=== PATIENT | female | born 1970 | race Asian ===

== ENCOUNTER 2017-08-28 21:16 | Inpatient (IN) | payer MEDICAID, OTHER ==
[~2017-08-28] VITALS: Ht 157.5 cm; Wt 50.0 kg
[~2017-08-28 21:16] MED LIST: MECL-111 PO
[2017-08-28] MEDS ORDERED: spironolactone 25 MG tablet PO ONE (21:50)
[2017-08-28] MEDS ORDERED: furosemide 40mg/4ml inj IV ONE (21:50)
[2017-08-28 21:59] LABS: HEMATOCRIT 22.2 % (35.0-45.0); HEMOGLOBIN 7.1 g/dl (12.0-16.0); MEAN CORPUSCULAR HEMOGLOBIN 23.3 PG (27.0-31.0); MEAN CORPUSCULAR HGB CONC 32.1 % (33.0-36.5); MEAN CORPUSCULAR VOLUME 72.6 FL (78-98); MEAN PLATELET VOLUME 9.2 FL (7.4-10.4); PLATELET COUNT 80 X10'3 (140-440); RED CELL DISTRIBUTION WIDTH 23.2 % (11.5-14.5); WHITE BLOOD COUNT 1.7 X10'3 (4.5-11.0)
[2017-08-28 22:23] LABS: PARTIAL THROMBOPLASTIN TIME 29 SECONDS (22-32); PROTHROMBIN TIME 10.3 SECONDS (9.0-12.0)
[2017-08-28 22:29] LABS: RED BLOOD COUNT 3.06 X10'6 (4.20-5.60)
[2017-08-28 22:33] LABS: ALANINE AMINOTRANSFERASE 32 U/L (12-78); ALBUMIN 2.2 G/DL (3.4-5.0); ALBUMIN/GLOBULIN RATIO 0.5 (1.1-1.5); ALKALINE PHOSPHATASE 102 IU/L (46-116); ANION GAP 8 (8-16); ASPARTATE AMINO TRANSFERASE 42 U/L (10-37); BILIRUBIN,TOTAL 0.2 MG/DL (0.1-1.0); BLOOD UREA NITROGEN 23 MG/DL (7-18); BUN/CREATININE RATIO 19.2 (6.6-38.0); CALCIUM 7.4 MG/DL (8.5-10.1); CHLORIDE 112 MMOL/L (99-107); POTASSIUM 3.7 MMOL/L (3.5-5.1); SODIUM 143 MMOL/L (135-145); eGFR 49 ML/MIN
[2017-08-28 22:35] LABS: GLUCOSE 99 MG/DL (70-104)
[2017-08-28 22:40] LABS: TOTAL CELLS COUNTED 100
[2017-08-28 22:41] LABS: ANISOCYTOSIS 3+; PLATELET ESTIMATE DECREASED
[2017-08-28 22:43] LABS: HYPOCHROMASIA 1+; MICROCYTOSIS 1+
[2017-08-28 22:44] LABS: LARGE PLATELETS FEW; TARGET CELLS FEW
[2017-08-28 22:45] LABS: ELLIPTOCYTES FEW; TEAR DROP CELLS FEW
[2017-08-28 23:10] LABS: ETHANOL < 0.010 GM/DL (0.0-0.010)
[2017-08-28] MEDS ORDERED: bisacodyl 10mg suppository rectal RC PRN (23:45)
[2017-08-28] MEDS ORDERED: HYDROmorphone inj. 0.5 MG/0.5 ML DISP.SYRIN IV PRN (23:45)
[2017-08-28] MEDS ORDERED: acetaminophen 650mg rectal suppository RC PRN (23:45)
[2017-08-28] MEDS ORDERED: magnesium hydroxide 30ml (MOM) UD suspension PO PRN (23:45)
[2017-08-28] MEDS ORDERED: HYDROcodone/acetaminophen 5mg/325mg tablet PO PRN (23:45)
[2017-08-28] MEDS ORDERED: mag hydrox/Alum hydrox/simeth 30ml oral suspension PO PRN (23:45)
[2017-08-28] MEDS ORDERED: acetaminophen 325mg tablet PO PRN ×2 (23:45)
[2017-08-28] MEDS ORDERED: diphenhydrAMINE 25mg capsule PO PRN (23:45)
[2017-08-28] MEDS ORDERED: metoclopramide 5 mg/ml inj IV PRN (23:45)
[2017-08-28] MEDS ORDERED: meclizine 12.5mg tablet PO PRN (23:45)
[2017-08-28] MEDS ORDERED: diphenhydrAMINE 50 mg/ml inj IV PRN (23:45)
[2017-08-28 23:47] LABS: CLARITY,URINE CLEAR (Clear); COLOR,URINE STRAW (Yellow); GLUCOSE, URINE NEGATIVE (Neg); KETONES,URINE NEGATIVE (Neg); LEUKOCYTE ESTERASE ,URINE NEGATIVE (Neg); NITRITES, URINE NEGATIVE (Neg); OCCULT BLOOD,URINE TRACE-INTACT (Neg); PROTEIN,URINE NEGATIVE (Neg); UROBILINOGEN,URINE 0.2 E.U/dL (0.2-1.0)
[2017-08-28 23:51] LABS: UA COLLECTION TYPE FOLEY CATH
[2017-08-28 23:54] LABS: BACTERIA,URINE NONE SEEN /HPF (Neg); SQUAMOUS EPITHELIAL CELL,UR FEW /LPF (FEW); WBC,URINE NONE SEEN /HPF (0-4)
[2017-08-28 23:57] LABS: URINE AMPHETAMINE SCREEN NEGATIVE (Neg); URINE BARBITUATE SCREEN NEGATIVE (Neg); URINE BENZODIAZEPINES SCREEN NEGATIVE (Neg); URINE CANNABINOID SCREEN NEGATIVE (Neg); URINE COCAINE SCREEN POSITIVE (Neg); URINE METHADONE SCREEN NEGATIVE (Neg); URINE OPIATE SCREEN NEGATIVE (Neg); URINE PHENCYCLIDINE SCREEN NEGATIVE (Neg)
[2017-08-29] VITALS (7 sets, daily range): BP systolic 161–186; BP diastolic 83–115
[2017-08-29 00:05] LABS: LIPASE 226 U/L (73-393)
[2017-08-29 00:16] LABS: HEMOGLOBIN A1C 5.3 % (4.5-6.2)
[2017-08-29 00:26] LABS: D-DIMER 6.77 MG/L FEU (0-0.50)
[2017-08-29] MEDS: HYDROcodone/acetaminophen 10/325mg tab PO PRN (00:27)
[2017-08-29 00:31] LABS: URINE HCG NEGATIVE (NEG)
[2017-08-29] MEDS: ondansetron/PF 4mg/2ml inj IV PRN ×2 (01:26→10:01)
[2017-08-29] MEDS: morphine 4 MG/ML inj SYRINge IV PRN ×3 (01:26→19:53)
[2017-08-29 01:34] LABS: MAGNESIUM 1.7 MG/DL (1.5-2.4); PHOSPHORUS 3.1 MG/DL (2.3-4.5)
[2017-08-29] MEDS: HYDROmorphone inj. 0.5 MG/0.5 ML DISP.SYRIN IV PRN ×2 (02:13→08:23)
[2017-08-29 04:04] LABS: ALANINE AMINOTRANSFERASE 30 U/L (12-78); ALBUMIN 2.2 G/DL (3.4-5.0); ALBUMIN/GLOBULIN RATIO 0.5 (1.1-1.5); ALKALINE PHOSPHATASE 95 IU/L (46-116); ANION GAP 9 (8-16); ASPARTATE AMINO TRANSFERASE 34 U/L (10-37); BILIRUBIN,TOTAL 0.2 MG/DL (0.1-1.0); BLOOD UREA NITROGEN 25 MG/DL (7-18); BUN/CREATININE RATIO 21.2 (6.6-38.0); CALCIUM 7.4 MG/DL (8.5-10.1); CHLORIDE 111 MMOL/L (99-107); CHOLESTEROL 145 MG/DL (0-200); CREATININE 1.18 MG/DL (0.40-0.90); GLUCOSE 101 MG/DL (70-104); HDL CHOLESTEROL 36 MG/DL (35-60); LDL CHOLESTEROL 87 MG/DL (50-100); POTASSIUM 3.6 MMOL/L (3.5-5.1); SODIUM 143 MMOL/L (135-145); TOTAL PROTEIN 6.9 G/DL (6.4-8.2); TRIGLYCERIDES 93 MG/DL (20-135); eGFR 50 ML/MIN
[2017-08-29 04:25] LABS: MEAN CORPUSCULAR HEMOGLOBIN 23.3 PG (27.0-31.0); MEAN CORPUSCULAR HGB CONC 32.4 % (33.0-36.5); MEAN CORPUSCULAR VOLUME 71.9 FL (78-98); MEAN PLATELET VOLUME 12.1 FL (7.4-10.4); PLATELET COUNT 93 X10'3 (140-440); RED BLOOD COUNT 2.93 X10'6 (4.20-5.60); RED CELL DISTRIBUTION WIDTH 23.7 % (11.5-14.5); WHITE BLOOD COUNT 1.8 X10'3 (4.5-11.0)
[2017-08-29 04:29] LABS: HEMOGLOBIN 6.8 g/dl (12.0-16.0)
[2017-08-29 05:37] LABS: NUCLEATED RED BLOOD CELLS 2 /100WBC (0-0); PLATELET ESTIMATE DECREASED; TOTAL CELLS COUNTED 100
[2017-08-29 05:38] LABS: ANISOCYTOSIS 3+; HYPOCHROMASIA 1+; MICROCYTOSIS 1+
[2017-08-29 05:39] LABS: ELLIPTOCYTES FEW; LARGE PLATELETS FEW; SMUDGE CELLS FEW; TARGET CELLS FEW; TEAR DROP CELLS FEW
[2017-08-29] MEDS: docusate sod 100mg capsule PO SCH ×2 (08:13→19:52)
[2017-08-29] MEDS: furosemide 10 MG/1 ML 10ml inj IV SCH ×2 (08:14→17:40)
[2017-08-29 10:11] LABS: C-REACTIVE PROTEIN 0.15 MG/DL (0.0-0.5)
[2017-08-29 10:36] LABS: % IRON SATURATION 7 % (11-46); IRON 26 UG/DL (49-151); TOTAL IRON BINDING CAPACITY 355 UG/DL (259-388)
[2017-08-29] MEDS: pantoprazole 40 MG vial IV SCH (13:48)
[2017-08-29] MEDS: methylPREDNISolone sod succ 125mg/2ml vial IV SCH ×3 (13:48→19:52)
[2017-08-29] MEDS ORDERED: furosemide 20 MG/2 ML vial IV ONE (15:55)
[2017-08-29] MEDS: potassium Cl 20 mEq SR tablet PO SCH (17:40)
[2017-08-30] VITALS (8 sets, daily range): BP systolic 127–155; BP diastolic 70–89
[2017-08-30] MEDS: morphine 4 MG/ML inj SYRINge IV PRN ×3 (00:01→18:01)
[2017-08-30] MEDS: furosemide 10 MG/1 ML 10ml inj IV SCH ×3 (00:05→15:41)
[2017-08-30] MEDS: temazepam 15mg capsule PO PRN (00:58)
[2017-08-30] MEDS: methylPREDNISolone sod succ 125mg/2ml vial IV SCH ×4 (02:00→15:41)
[2017-08-30 06:20] LABS: HEMATOCRIT 25.2 % (35.0-45.0); HEMOGLOBIN 8.3 g/dl (12.0-16.0); MEAN CORPUSCULAR HEMOGLOBIN 24.3 PG (27.0-31.0); MEAN CORPUSCULAR HGB CONC 32.9 % (33.0-36.5); MEAN PLATELET VOLUME 9.2 FL (7.4-10.4); PLATELET COUNT 71 X10'3 (140-440); RED BLOOD COUNT 3.41 X10'6 (4.20-5.60); WHITE BLOOD COUNT 1.7 X10'3 (4.5-11.0)
[2017-08-30 06:44] LABS: ALANINE AMINOTRANSFERASE 25 U/L (12-78); ALBUMIN 2.2 G/DL (3.4-5.0); ALBUMIN/GLOBULIN RATIO 0.4 (1.1-1.5); ALKALINE PHOSPHATASE 82 IU/L (46-116); ANION GAP 7 (8-16); ASPARTATE AMINO TRANSFERASE 27 U/L (10-37); BILIRUBIN,TOTAL 0.3 MG/DL (0.1-1.0); BLOOD UREA NITROGEN 24 MG/DL (7-18); BUN/CREATININE RATIO 17.5 (6.6-38.0); CALCIUM 7.5 MG/DL (8.5-10.1); CHLORIDE 107 MMOL/L (99-107); CREATININE 1.37 MG/DL (0.40-0.90); GLUCOSE 124 MG/DL (70-104); POTASSIUM 3.9 MMOL/L (3.5-5.1); SODIUM 141 MMOL/L (135-145); TOTAL CARBON DIOXIDE 26.9 MMOL/L (24-32); TOTAL PROTEIN 7.1 G/DL (6.4-8.2); eGFR 42 ML/MIN
[2017-08-30 07:19] LABS: TOTAL CELLS COUNTED 100
[2017-08-30 07:20] LABS: ANISOCYTOSIS 3+; PLATELET ESTIMATE DECREASED
[2017-08-30 07:21] LABS: MICROCYTOSIS 1+; POLYCHROMASIA 1+; SCHISTOCYTES FEW; TEAR DROP CELLS 1+
[2017-08-30 07:22] LABS: SMUDGE CELLS 1+
[2017-08-30 07:23] LABS: ELLIPTOCYTES FEW; HYPOCHROMASIA 2+; LARGE PLATELETS FEW; TARGET CELLS 1+
[2017-08-30] MEDS: docusate sod 100mg capsule PO SCH ×2 (08:20→19:58)
[2017-08-30] MEDS: pantoprazole 40 MG vial IV SCH (08:20)
[2017-08-30] MEDS: lisinopril 2.5mg tablet PO SCH (08:20)
[2017-08-30] MEDS: potassium Cl 20 mEq SR tablet PO SCH ×2 (08:20→18:00)
[2017-08-30] MEDS ORDERED: aminophylline 250mg/10ml inj. IV PRN (13:00)
[2017-08-30] MEDS ORDERED: metoprolol tartrate 1mg/ml inj IV PRN (13:00)
[2017-08-30] MEDS ORDERED: nitroGLYCERIN 0.4mg SUBLingual tab SL PRN (13:00)
[2017-08-30] MEDS ORDERED: regadenoson 0.4mg/5ml syringe IV ONE (13:00)
[2017-08-30] MEDS: aspirin 81mg tablet.DR PO SCH (15:42)
[2017-08-31] VITALS (12 sets, daily range): BP systolic 92–146; BP diastolic 62–81
[2017-08-31] MEDS: methylPREDNISolone sod succ 125mg/2ml vial IV SCH ×3 (00:06→19:39)
[2017-08-31] MEDS: furosemide 10 MG/1 ML 10ml inj IV SCH ×3 (00:06→19:38)
[2017-08-31] MEDS: temazepam 15mg capsule PO PRN (00:13)
[2017-08-31] MEDS: morphine 4 MG/ML inj SYRINge IV PRN ×3 (00:13→21:06)
[2017-08-31 05:24] LABS: HEMOGLOBIN 8.7 g/dl (12.0-16.0); MEAN CORPUSCULAR HEMOGLOBIN 24.6 PG (27.0-31.0); MEAN CORPUSCULAR HGB CONC 32.2 % (33.0-36.5); MEAN CORPUSCULAR VOLUME 76.1 FL (78-98); MEAN PLATELET VOLUME 10.6 FL (7.4-10.4); PLATELET COUNT 88 X10'3 (140-440); RED BLOOD COUNT 3.54 X10'6 (4.20-5.60); RED CELL DISTRIBUTION WIDTH 22.8 % (11.5-14.5); WHITE BLOOD COUNT 5.2 X10'3 (4.5-11.0)
[2017-08-31 05:35] LABS: ALANINE AMINOTRANSFERASE 24 U/L (12-78); ALBUMIN 2.3 G/DL (3.4-5.0); ALBUMIN/GLOBULIN RATIO 0.5 (1.1-1.5); ALKALINE PHOSPHATASE 81 IU/L (46-116); ANION GAP 8 (8-16); ASPARTATE AMINO TRANSFERASE 22 U/L (10-37); BILIRUBIN,TOTAL 0.2 MG/DL (0.1-1.0); BLOOD UREA NITROGEN 33 MG/DL (7-18); BUN/CREATININE RATIO 23.1 (6.6-38.0); CALCIUM 7.8 MG/DL (8.5-10.1); CHLORIDE 102 MMOL/L (99-107); CREATININE 1.43 MG/DL (0.40-0.90); GLUCOSE 158 MG/DL (70-104); POTASSIUM 4.2 MMOL/L (3.5-5.1); SODIUM 137 MMOL/L (135-145); TOTAL CARBON DIOXIDE 27.1 MMOL/L (24-32); TOTAL PROTEIN 7.2 G/DL (6.4-8.2); eGFR 40 ML/MIN
[2017-08-31 07:09] LABS: TOTAL CELLS COUNTED 100
[2017-08-31 07:12] LABS: ANISOCYTOSIS 3+; ELLIPTOCYTES 1+; HYPOCHROMASIA 2+; MICROCYTOSIS 1+; PLATELET ESTIMATE DECREASED; TARGET CELLS 1+
[2017-08-31 07:13] LABS: POLYCHROMASIA FEW
[2017-08-31 07:14] LABS: SCHISTOCYTES FEW
[2017-08-31 07:15] LABS: LARGE PLATELETS FEW; POIKILOCYTOSIS 1+
[2017-08-31 07:16] LABS: SPHEROCYTES FEW
[2017-08-31] MEDS ORDERED: regadenoson 0.4mg/5ml syringe IV ONE (08:09)
[2017-08-31] MEDS ORDERED: aminophylline inj. 0 ML IV ONE (08:09)
[2017-08-31] MEDS: pantoprazole 40mg Tablet.DR PO SCH (09:42)
[2017-08-31] MEDS: docusate sod 100mg capsule PO SCH ×2 (09:42→19:39)
[2017-08-31] MEDS: aspirin 81mg tablet.DR PO SCH (09:42)
[2017-08-31] MEDS: carVEDilol 3.125mg tablet PO SCH ×2 (09:42→19:39)
[2017-08-31] MEDS: lisinopril 2.5mg tablet PO SCH (09:42)
[2017-08-31] MEDS: potassium Cl 20 mEq SR tablet PO SCH ×2 (09:42→17:56)
[2017-09-01] MEDS: morphine 4 MG/ML inj SYRINge IV PRN (02:20)
[2017-09-01 03:00] VITALS: BP 125/69
[2017-09-01 05:14] LABS: HEMATOCRIT 25.5 % (35.0-45.0); HEMOGLOBIN 8.6 g/dl (12.0-16.0); MEAN CORPUSCULAR HEMOGLOBIN 25.6 PG (27.0-31.0); MEAN CORPUSCULAR HGB CONC 33.6 % (33.0-36.5); MEAN CORPUSCULAR VOLUME 76.1 FL (78-98); MEAN PLATELET VOLUME 10.4 FL (7.4-10.4); PLATELET COUNT 89 X10'3 (140-440); RED BLOOD COUNT 3.35 X10'6 (4.20-5.60); RED CELL DISTRIBUTION WIDTH 22.3 % (11.5-14.5); WHITE BLOOD COUNT 7.2 X10'3 (4.5-11.0)
[2017-09-01 05:31] LABS: ALANINE AMINOTRANSFERASE 55 U/L (12-78); ALBUMIN 2.1 G/DL (3.4-5.0); ALBUMIN/GLOBULIN RATIO 0.4 (1.1-1.5); ALKALINE PHOSPHATASE 90 IU/L (46-116); ANION GAP 5 (8-16); ASPARTATE AMINO TRANSFERASE 74 U/L (10-37); BILIRUBIN,TOTAL 0.2 MG/DL (0.1-1.0); BLOOD UREA NITROGEN 38 MG/DL (7-18); BUN/CREATININE RATIO 25.9 (6.6-38.0); CALCIUM 7.9 MG/DL (8.5-10.1); CHLORIDE 104 MMOL/L (99-107); CREATININE 1.47 MG/DL (0.40-0.90); GLUCOSE 174 MG/DL (70-104); POTASSIUM 4.4 MMOL/L (3.5-5.1); SODIUM 138 MMOL/L (135-145); TOTAL CARBON DIOXIDE 28.6 MMOL/L (24-32); TOTAL PROTEIN 6.8 G/DL (6.4-8.2); eGFR 38 ML/MIN
[2017-09-01 05:50] LABS: LYMPHOCYTES % (MANUAL) 3 % (21-51); MONOCYTES % (MANUAL) 11 % (2-12); NEUTROPHILS % (MANUAL) 86 % (42-75); TOTAL CELLS COUNTED 100
[2017-09-01 05:51] LABS: ANISOCYTOSIS 3+; HYPOCHROMASIA 1+; PLATELET ESTIMATE DECREASED; TARGET CELLS 1+
[2017-09-01 05:52] LABS: SCHISTOCYTES FEW
[2017-09-01 06:00] VITALS: BP 122/70
[2017-09-01] MEDS: aspirin 81mg tablet.DR PO SCH (07:40)
[2017-09-01] MEDS: carVEDilol 3.125mg tablet PO SCH (07:40)
[2017-09-01] MEDS: lisinopril 2.5mg tablet PO SCH (07:40)
[2017-09-01] MEDS: pantoprazole 40mg Tablet.DR PO SCH (07:40)
[2017-09-01] MEDS: docusate sod 100mg capsule PO SCH (07:40)
[2017-09-01] MEDS: furosemide 10 MG/1 ML 10ml inj IV SCH (07:41)
[2017-09-01] MEDS: methylPREDNISolone sod succ 125mg/2ml vial IV SCH (07:41)
[2017-09-01] MEDS: potassium Cl 20 mEq SR tablet PO SCH (07:41)
[2017-09-01] MEDS: HYDROcodone/acetaminophen 10/325mg tab PO PRN ×2 (07:43→12:34)
[2017-09-01 11:00] VITALS: BP 115/60
[2017-09-01] MEDS ORDERED: FURO-150 PO (11:30)
[2017-09-01] MEDS ORDERED: PRED10TA23 PO (11:30)
[2017-09-01] MEDS ORDERED: POTA20TA10 PO (11:30)
[2017-09-01] MEDS ORDERED: LISI2.5T2 PO (11:30)
[2017-09-01] MEDS ORDERED: PANT40TA4 PO (11:30)
[2017-09-01] MEDS ORDERED: COR3.125T PO (11:30)
== END 2017-09-01 13:30 | disposition home or self-care (01) | DRG 194 ==
LOC: ER 21:17 → ED HOLD 23:45 → PCU 3S 08-29 15:20
PROVIDERS: ADMIT Family Medicine; ATTEND Internal Medicine
PROC: 30233N1 Transfusion of Nonautologous Red Blood Cells into Peripheral Vein, Percutaneous Approach (ICD-10-PCS; principal; 2017-08-29)
PROC: 0W9G3ZZ Drainage of Peritoneal Cavity, Percutaneous Approach (ICD-10-PCS; 2017-08-30)
DX: I11.0 Hypertensive heart disease with heart failure (principal); D61.818 Other pancytopenia; N17.9 Acute kidney failure, unspecified; I31.3 Pericardial effusion (noninflammatory); D69.6 Thrombocytopenia, unspecified; R18.8 Other ascites; I27.20 Pulmonary hypertension, unspecified; M32.9 Systemic lupus erythematosus, unspecified; I50.23 Acute on chronic systolic (congestive) heart failure; M19.90 Unspecified osteoarthritis, unspecified site; G89.29 Other chronic pain; D63.8 Anemia in other chronic diseases classified elsewhere; F14.10 Cocaine abuse, uncomplicated; F17.210 Nicotine dependence, cigarettes, uncomplicated; Z91.14 Patient's other noncompliance with medication regimen; Z71.51 Drug abuse counseling and surveillance of drug abuser; Z56.0 Unemployment, unspecified; Z82.3 Family history of stroke
CPT/HCPCS: 36415; 49083; 71045; 71250; 74176; 78452; 80053; 80061; 80305; 80320; 81001; 81025; 82248; 83036; 83540; 83550; 83690; 83735; 83880; 84100; 84443; 84484; 85025; 85379; 85610; 85651; 85730; 86140; 86885; 86900; 86901; 86920; 86945; 87070; 93005; 93017; 93306; 93970; 96374; 99285; A4315; A9500; A9539; A9540; C9113; J0280; J1170; J1940; J2270; J2405; J2930; J7030; P9016; Q0163

== ENCOUNTER 2019-07-08 21:53 | Inpatient (IN) | payer MEDICAID, OTHER ==
[~2019-07-08] VITALS: Ht 157.5 cm; Wt 50.9 kg
[~2019-07-08 21:53] MED LIST changes: +COR3.125T PO; +LISI2.5T2 PO; -MECL-111 PO; +PANT40TA4 PO; +POTA20TA10 PO
--- NOTE | 2019-07-08 21:57 | NUR ---
Daughter's phone number (POA): [phone]
[2019-07-08 22:34] LABS: BASOPHILS % (AUTO) 0.7 % (0-1); EOSINOPHILS % (AUTO) 1.1 % (0-6); LYMPHOCYTES # (AUTO) 0.3 X10'3 (1.1-4.8); LYMPHOCYTES % (AUTO) 14.4 % (21-51); MEAN CORPUSCULAR HEMOGLOBIN 27.1 PG (27.0-31.0); MEAN CORPUSCULAR HGB CONC 33.4 g/dL (33.0-36.5); MEAN CORPUSCULAR VOLUME 81.1 FL (78-98); MEAN PLATELET VOLUME 8.5 FL (7.4-10.4); MONOCYTES # (AUTO) 0.2 X10'3 (0-0.9); MONOCYTES % (AUTO) 7.8 % (2-12); NEUTROPHILS # (AUTO) 1.5 X10'3 (1.8-7.7); PLATELET COUNT 101 X10'3 (140-440); RED BLOOD COUNT 2.27 X10'6 (4.20-5.60); WHITE BLOOD COUNT 1.9 X10'3 (4.5-11.0)
[2019-07-08 22:41] LABS: CLARITY,URINE CLEAR (Clear); COLOR,URINE YELLOW (Yellow); GLUCOSE, URINE NEGATIVE (Neg); KETONES,URINE NEGATIVE (Neg); LEUKOCYTE ESTERASE ,URINE NEGATIVE (Neg); NITRITES, URINE NEGATIVE (Neg); OCCULT BLOOD,URINE TRACE-INTACT (Neg); PH,URINE 6.5 (4.8-8.0); PROTEIN,URINE 100 mg/dl (Neg); URINE HCG NEGATIVE (NEG); UROBILINOGEN,URINE 0.2 E.U/dL (0.2-1.0)
[2019-07-08 22:41] LABS: PARTIAL THROMBOPLASTIN TIME 37 SECONDS (22-32)
[2019-07-08 22:45] LABS: ALANINE AMINOTRANSFERASE 29 U/L (12-78); ALBUMIN 1.5 G/DL (3.4-5.0); ALBUMIN/GLOBULIN RATIO 0.2 (1.1-1.5); ALKALINE PHOSPHATASE 25 IU/L (46-116); AMYLASE 100 U/L (25-115); ANION GAP 11 (8-16); ASPARTATE AMINO TRANSFERASE 34 U/L (10-37); BILIRUBIN,TOTAL 0.2 MG/DL (0.1-1.0); BLOOD UREA NITROGEN 25 MG/DL (7-18); CALCIUM 7.8 MG/DL (8.5-10.1); CHLORIDE 106 MMOL/L (99-107); CREATININE 1.47 MG/DL (0.40-0.90); HEMATOCRIT 18.4 % (35.0-45.0); HEMOGLOBIN 6.2 g/dl (12.0-16.0); LIPASE 280 U/L (73-393); POTASSIUM 4.7 MMOL/L (3.5-5.1); SODIUM 134 MMOL/L (135-145); TOTAL CARBON DIOXIDE 17.3 MMOL/L (24-32); TOTAL PROTEIN 8.2 G/DL (6.4-8.2); eGFR 38 ML/MIN
[2019-07-08 22:46] LABS: GLUCOSE 98 MG/DL (70-104)
[2019-07-08 22:47] LABS: UA COLLECTION TYPE NON-SPECIFIED
[2019-07-08 22:48] LABS: BACTERIA,URINE FEW /HPF (Neg); RBC,URINE 0-2 /HPF (0-2); SQUAMOUS EPITHELIAL CELL,UR FEW /LPF (FEW); WBC,URINE NONE SEEN /HPF (0-4)
[2019-07-08 22:51] LABS: URINE AMPHETAMINE SCREEN NEGATIVE (Neg); URINE BARBITUATE SCREEN NEGATIVE (Neg); URINE BENZODIAZEPINES SCREEN NEGATIVE (Neg); URINE CANNABINOID SCREEN NEGATIVE (Neg); URINE COCAINE SCREEN NEGATIVE (Neg); URINE METHADONE SCREEN NEGATIVE (Neg); URINE OPIATE SCREEN POSITIVE (Neg); URINE PHENCYCLIDINE SCREEN NEGATIVE (Neg)
[2019-07-08] MEDS ORDERED: morphine 2 MG/ML inj. syringe IV ONE (22:55)
[2019-07-08 23:13] LABS: ANISOCYTOSIS 3+; ELLIPTOCYTES FEW; HYPOCHROMASIA 1+; PLATELET ESTIMATE DECREASED; TOTAL CELLS COUNTED 100
[2019-07-08] MEDS ORDERED: FURO-149 PO (23:26)
[2019-07-08] MEDS ORDERED: SPIR50TA5 PO (23:26)
[2019-07-08] MEDS ORDERED: HYDR-3972 PO (23:26)
[2019-07-08 23:27] LABS: MAGNESIUM 1.8 MG/DL (1.5-2.4)
[2019-07-09] VITALS (8 sets, daily range): BP systolic 101–117; BP diastolic 57–78
--- NOTE | 2019-07-09 00:17 | NUR ---
Called blood bank re blood product for pt. Per lab personnel, pt. needs irradiated product. Order to [facility] has been placed and process takes about 1hour. Lab personnel to update nursing staff when product is ready.
[2019-07-09] MEDS ORDERED: normal saline 1000ml 1,000 ML IV SCH (01:43)
[2019-07-09] MEDS ORDERED: magnesium hydroxide 30ml (MOM) UD suspension PO PRN (01:45)
[2019-07-09] MEDS ORDERED: mag hydrox/Alum hydrox/simeth 30ml oral suspension PO PRN (01:45)
[2019-07-09] MEDS ORDERED: acetaminophen 325mg tablet PO PRN (01:45)
[2019-07-09] MEDS ORDERED: ondansetron/PF 4mg/2ml inj IV PRN (01:45)
--- NOTE | 2019-07-09 01:48 | NUR ---
PT PLACED ON HOSPITAL BED FOR COMFORT
[2019-07-09] MEDS ORDERED: vancomycin/NS 1 GM ADD-VANTAGE 250 ML IV SCH (02:00)
[2019-07-09] MEDS: HYDROcodone/acetaminophen 10/325mg tab PO PRN ×2 (02:47→12:04)
--- NOTE | 2019-07-09 06:50 | NUR ---
pt sleeping quietly at this time.
[2019-07-09] MEDS: CefTRIAXone/D5W-Rocephin 1gm 50 ML IV SCH (08:38)
--- NOTE | 2019-07-09 08:41 | NUR ---
PT C/O SUPRAPUBIC PAIN, A BURNING PAIN ON A SCALE OF 10/10
[2019-07-09] MEDS: normal saline 1000ml 1,000 ML IV SCH (11:19)
[2019-07-09 13:38] LABS: HEMATOCRIT 24.4 % (35.0-45.0); HEMOGLOBIN 8.1 g/dl (12.0-16.0); MEAN CORPUSCULAR HEMOGLOBIN 27.8 PG (27.0-31.0); MEAN CORPUSCULAR VOLUME 84.3 FL (78-98); MEAN PLATELET VOLUME 8.4 FL (7.4-10.4); PLATELET COUNT 88 X10'3 (140-440); RED CELL DISTRIBUTION WIDTH 18.6 % (11.5-14.5); WHITE BLOOD COUNT 1.7 X10'3 (4.5-11.0)
[2019-07-09 15:37] LABS: ALBUMIN 1.4 G/DL (3.4-5.0); ANION GAP 8 (8-16); BLOOD UREA NITROGEN 24 MG/DL (7-18); BUN/CREATININE RATIO 17.6 (6.6-38.0); CALCIUM 7.1 MG/DL (8.5-10.1); CHLORIDE 109 MMOL/L (99-107); CREATININE 1.36 MG/DL (0.40-0.90); GLUCOSE 97 MG/DL (70-104); POTASSIUM 4.4 MMOL/L (3.5-5.1); SODIUM 134 MMOL/L (135-145); TOTAL CARBON DIOXIDE 16.9 MMOL/L (24-32); eGFR 42 ML/MIN
--- NOTE | 2019-07-09 18:58 | NUR ---
Gave report to Terrance Wiley.
[2019-07-09] MEDS: pantoprazole 40 MG vial IV SCH (21:34)
[2019-07-09] MEDS: methylPREDNISolone sod succ/PF 40mg inj. IV SCH (21:34)
[2019-07-10] VITALS: BP 108/60
[2019-07-10] MEDS: normal saline 1000ml 1,000 ML IV SCH (05:05)
[2019-07-10 06:03] LABS: BASOPHILS % (AUTO) 0.3 % (0-1); EOSINOPHILS % (AUTO) 0.1 % (0-6); HEMATOCRIT 25.1 % (35.0-45.0); HEMOGLOBIN 8.4 g/dl (12.0-16.0); LYMPHOCYTES # (AUTO) 0.4 X10'3 (1.1-4.8); LYMPHOCYTES % (AUTO) 22.2 % (21-51); MEAN CORPUSCULAR HEMOGLOBIN 27.7 PG (27.0-31.0); MEAN CORPUSCULAR HGB CONC 33.3 g/dL (33.0-36.5); MEAN CORPUSCULAR VOLUME 83.1 FL (78-98); MEAN PLATELET VOLUME 9.2 FL (7.4-10.4); MONOCYTES # (AUTO) 0.1 X10'3 (0-0.9); MONOCYTES % (AUTO) 5.8 % (2-12); NEUTROPHILS # (AUTO) 1.2 X10'3 (1.8-7.7); NEUTROPHILS % (AUTO) 71.6 % (42-75); PLATELET COUNT 86 X10'3 (140-440); RED BLOOD COUNT 3.02 X10'6 (4.20-5.60); RED CELL DISTRIBUTION WIDTH 18.5 % (11.5-14.5); WHITE BLOOD COUNT 1.6 X10'3 (4.5-11.0)
[2019-07-10 06:39] LABS: ALANINE AMINOTRANSFERASE 18 U/L (12-78); ALBUMIN 1.3 G/DL (3.4-5.0); ALBUMIN/GLOBULIN RATIO 0.2 (1.1-1.5); ALKALINE PHOSPHATASE 22 IU/L (46-116); ANION GAP 10 (8-16); ASPARTATE AMINO TRANSFERASE 23 U/L (10-37); BILIRUBIN,TOTAL 0.1 MG/DL (0.1-1.0); BLOOD UREA NITROGEN 24 MG/DL (7-18); BUN/CREATININE RATIO 18.6 (6.6-38.0); CALCIUM 6.9 MG/DL (8.5-10.1); CHLORIDE 110 MMOL/L (99-107); CREATININE 1.29 MG/DL (0.40-0.90); POTASSIUM 4.8 MMOL/L (3.5-5.1); SODIUM 136 MMOL/L (135-145); TOTAL CARBON DIOXIDE 16.2 MMOL/L (24-32); TOTAL PROTEIN 7.8 G/DL (6.4-8.2); eGFR 44 ML/MIN
[2019-07-10 06:40] LABS: GLUCOSE 117 MG/DL (70-104)
[2019-07-10 07:00] VITALS: BP 110/63
[2019-07-10 07:15] LABS: ANISOCYTOSIS 2+; MICROCYTOSIS 1+; PLATELET ESTIMATE DECREASED; TOTAL CELLS COUNTED 100
[2019-07-10 07:16] LABS: POLYCHROMASIA FEW
[2019-07-10] MEDS: CefTRIAXone/D5W-Rocephin 1gm 50 ML IV SCH (08:25)
[2019-07-10] MEDS: methylPREDNISolone sod succ/PF 40mg inj. IV SCH ×2 (08:25→20:05)
[2019-07-10] MEDS: pantoprazole 40 MG vial IV SCH ×2 (08:25→20:05)
[2019-07-10] MEDS: HYDROcodone/acetaminophen 10/325mg tab PO PRN (08:26)
--- NOTE | 2019-07-10 09:17 | NUR ---
PAGER ID: [phone] MESSAGE: Good morning. Venus Elam in [address] order requiring your immediate attention please. GFR 42. Thank you! Radha [id number]
--- NOTE | 2019-07-10 10:31 | NUR ---
Called MD Katz cell phone and spoke to MD. Clarified CT order. MD stated he want IV contrast before because he wanted more detail of fluid in abdomen. Stated he thought it was just anasarca. He is aware of pt's kidney function however and feels the risks outweigh the benefits in this circumstance. MD Katz confirmed cancelation of CT of abd and pelvis with IV contrast.
[2019-07-10 12:37] VITALS: BP 111/63
[2019-07-10 16:55] VITALS: BP 184/104
[2019-07-10 16:55] LABS: ALANINE AMINOTRANSFERASE 20 U/L (12-78); ALBUMIN 1.2 G/DL (3.4-5.0); ALBUMIN/GLOBULIN RATIO 0.2 (1.1-1.5); ALKALINE PHOSPHATASE 23 IU/L (46-116); ANION GAP 7 (8-16); ASPARTATE AMINO TRANSFERASE 28 U/L (10-37); BILIRUBIN,TOTAL 0.1 MG/DL (0.1-1.0); BLOOD UREA NITROGEN 27 MG/DL (7-18); BUN/CREATININE RATIO 18.8 (6.6-38.0); CALCIUM 6.5 MG/DL (8.5-10.1); CHLORIDE 108 MMOL/L (99-107); CREATININE 1.44 MG/DL (0.40-0.90); POTASSIUM 4.6 MMOL/L (3.5-5.1); SODIUM 133 MMOL/L (135-145); TOTAL PROTEIN 7.5 G/DL (6.4-8.2); eGFR 39 ML/MIN
[2019-07-10 16:58] LABS: GLUCOSE 145 MG/DL (70-104)
[2019-07-10 20:00] VITALS: BP 142/75
[2019-07-11] VITALS: BP 116/71
[2019-07-11] MEDS: normal saline 1000ml 1,000 ML IV SCH (01:39)
[2019-07-11 05:10] LABS: BASOPHILS % (AUTO) 0.5 % (0-1); EOSINOPHILS % (AUTO) 0 % (0-6); HEMATOCRIT 26.1 % (35.0-45.0); HEMOGLOBIN 8.7 g/dl (12.0-16.0); LYMPHOCYTES # (AUTO) 0.5 X10'3 (1.1-4.8); LYMPHOCYTES % (AUTO) 15.4 % (21-51); MEAN CORPUSCULAR HGB CONC 33.2 g/dL (33.0-36.5); MEAN CORPUSCULAR VOLUME 84.3 FL (78-98); MEAN PLATELET VOLUME 8.7 FL (7.4-10.4); MONOCYTES # (AUTO) 0.3 X10'3 (0-0.9); MONOCYTES % (AUTO) 9.4 % (2-12); NEUTROPHILS # (AUTO) 2.6 X10'3 (1.8-7.7); NEUTROPHILS % (AUTO) 74.7 % (42-75); PLATELET COUNT 102 X10'3 (140-440); RED BLOOD COUNT 3.09 X10'6 (4.20-5.60); WHITE BLOOD COUNT 3.4 X10'3 (4.5-11.0)
[2019-07-11 05:23] LABS: ALANINE AMINOTRANSFERASE 27 U/L (12-78); ALBUMIN 1.3 G/DL (3.4-5.0); ALBUMIN/GLOBULIN RATIO 0.2 (1.1-1.5); ALKALINE PHOSPHATASE 22 IU/L (46-116); ANION GAP 8 (8-16); ASPARTATE AMINO TRANSFERASE 37 U/L (10-37); BILIRUBIN,TOTAL 0.1 MG/DL (0.1-1.0); BLOOD UREA NITROGEN 28 MG/DL (7-18); BUN/CREATININE RATIO 20.9 (6.6-38.0); CALCIUM 6.8 MG/DL (8.5-10.1); CHLORIDE 111 MMOL/L (99-107); CREATININE 1.34 MG/DL (0.40-0.90); POTASSIUM 4.8 MMOL/L (3.5-5.1); SODIUM 136 MMOL/L (135-145); TOTAL CARBON DIOXIDE 16.6 MMOL/L (24-32); eGFR 42 ML/MIN
[2019-07-11 05:25] LABS: GLUCOSE 132 MG/DL (70-104)
--- NOTE | 2019-07-11 06:00 | NUR ---
Patient in room [facility] 352. I have received report from REBECCA Saucedo and had the opportunity to ask questions and assume patient care.
[2019-07-11 06:18] LABS: ANISOCYTOSIS 2+; PLATELET ESTIMATE DECREASED; TOTAL CELLS COUNTED 100
[2019-07-11 06:19] LABS: ELLIPTOCYTES FEW
--- NOTE | 2019-07-11 06:34 | NUR ---
Problems reprioritized. Patient report given, questions answered & plan of care reviewed with Carlo FERNANDEZ.
[2019-07-11] MEDS: methylPREDNISolone sod succ/PF 40mg inj. IV SCH (07:49)
[2019-07-11] MEDS: pantoprazole 40 MG vial IV SCH (07:52)
[2019-07-11 08:00] VITALS: BP 126/79
[2019-07-11] MEDS ORDERED: pneumococcal 23-VAL P-sac vacc 25 mcg/0.5ml vial IMVAC ONE (10:00)
--- NOTE | 2019-07-11 10:42 | NUR ---
IR team to patient bedside scanned ABD with ultrasound and determined that there was not enough fluid to drain by Stanislaw FALOLN. Nursing Staff informed
[2019-07-11] MEDS: HYDROcodone/acetaminophen 10/325mg tab PO PRN (10:45)
--- NOTE | 2019-07-11 11:33 | NUR ---
REBECCA TC: Pt family requesting neutropenic diet guidelines for once d/c since to maintain neutropenic precautions. RD provided written neutropenic and general food safety diet eds w/ RD contact information placed in patient chart to be included in d/c packet. RN notified since family requested but had just left prior to RD visit. Addendum: 07/11/19 at [address] Amended: Links added.
[2019-07-11] MEDS ORDERED: PANT-47 PO (11:53)
[2019-07-11] MEDS ORDERED: PRED20TA PO ×2 (11:56→11:58)
--- NOTE | 2019-07-11 13:30 | NUR ---
Patient discharged home into the care of family. Patient verbalized understanding of instructions. Patient will follow neutropenic dietary guidelines as provided. Patient will follow up with primary care provider. Patient IV's removed, no tele. Patient alert, oriented and appropriate for discharge. Patient left with all belongings. Patient escorted down by member of the staff.
[2019-07-12] MEDS ORDERED: VANCOMYCIN LEVEL IV ONE (01:30)
== END 2019-07-11 14:00 | disposition home or self-care (01) | DRG 194 ==
LOC: ER 21:54 → ED HOLD 07-09 01:43 → SUR 3N 07-09 12:41
PROVIDERS: ADMIT Internal Medicine; ATTEND Internal Medicine
PROC: 30233N1 Transfusion of Nonautologous Red Blood Cells into Peripheral Vein, Percutaneous Approach (ICD-10-PCS; principal; 2019-07-09)
DX: I50.23 Acute on chronic systolic (congestive) heart failure (principal); D61.818 Other pancytopenia; E86.0 Dehydration; M32.9 Systemic lupus erythematosus, unspecified; K72.90 Hepatic failure, unspecified without coma; D64.9 Anemia, unspecified; F19.10 Other psychoactive substance abuse, uncomplicated; Z86.73 Personal history of transient ischemic attack (TIA), and cerebral infarction without residual deficits; Z87.891 Personal history of nicotine dependence; G89.29 Other chronic pain; M19.90 Unspecified osteoarthritis, unspecified site
CPT/HCPCS: 36415; 36430; 71045; 74176; 76705; 80048; 80053; 80305; 81001; 81025; 82150; 83605; 83690; 83735; 83880; 84145; 84484; 85025; 85027; 85610; 85730; 86885; 86900; 86901; 86920; 86945; 87040; 93005; 93306; C9113; G0378; J0696; J2270; J2405; J2920; J3370; J7030; P9016

== ENCOUNTER 2019-10-01 23:09 | Inpatient (IN) | payer MEDICAID ==
[~2019-10-01] VITALS: Ht 157.5 cm; Wt 49.9 kg
[~2019-10-01 23:09] MED LIST changes: -COR3.125T PO; +FURO-149 PO; +HYDR-3972 PO; -LISI2.5T2 PO; +PANT-47 PO; -PANT40TA4 PO; -POTA20TA10 PO; +PRED20TA PO; +SPIR50TA5 PO
[2019-10-02] VITALS (7 sets, daily range): BP systolic 92–153; BP diastolic 47–83
[2019-10-02 00:46] LABS: HEMOGLOBIN 8.8 g/dl (12.0-16.0); MEAN CORPUSCULAR HGB CONC 32.8 g/dL (33.0-36.5); MEAN PLATELET VOLUME 9.6 FL (7.4-10.4); MONOCYTES # (AUTO) 0.3 X10'3 (0-0.9); NEUTROPHILS # (AUTO) 0.7 X10'3 (1.8-7.7); PARTIAL THROMBOPLASTIN TIME 33 SECONDS (22-32); WHITE BLOOD COUNT 1.9 X10'3 (4.5-11.0)
[2019-10-02 00:49] LABS: ALANINE AMINOTRANSFERASE 14 U/L (12-78); ALBUMIN 2.6 G/DL (3.4-5.0); ALBUMIN/GLOBULIN RATIO 0.4 (1.1-1.5); ALKALINE PHOSPHATASE 12 IU/L (46-116); ANION GAP 7 (8-16); ASPARTATE AMINO TRANSFERASE 31 U/L (10-37); BILIRUBIN,TOTAL 0.3 MG/DL (0.1-1.0); BLOOD UREA NITROGEN 48 MG/DL (7-18); BUN/CREATININE RATIO 27.7 (6.6-38.0); CALCIUM 8.5 MG/DL (8.5-10.1); CHLORIDE 103 MMOL/L (99-107); CREATINE KINASE 56 U/L (26-192); CREATININE 1.73 MG/DL (0.40-0.90); MAGNESIUM 1.9 MG/DL (1.5-2.4); POTASSIUM 4.3 MMOL/L (3.5-5.1); SODIUM 136 MMOL/L (135-145); TOTAL CARBON DIOXIDE 25.9 MMOL/L (24-32); TOTAL PROTEIN 8.4 G/DL (6.4-8.2); eGFR 32 ML/MIN
[2019-10-02 00:50] LABS: GLUCOSE 106 MG/DL (70-104)
[2019-10-02 00:59] LABS: BASOPHILS % (AUTO) 0.5 % (0-1); EOSINOPHILS % (AUTO) 1.4 % (0-6); LYMPHOCYTES # (AUTO) 0.9 X10'3 (1.1-4.8); MEAN CORPUSCULAR VOLUME 91.5 FL (78-98); MONOCYTES % (AUTO) 15.6 % (2-12); NEUTROPHILS % (AUTO) 36.5 % (42-75); PLATELET COUNT 60 X10'3 (140-440); RED BLOOD COUNT 2.94 X10'6 (4.20-5.60); RED CELL DISTRIBUTION WIDTH 15.2 % (11.5-14.5)
[2019-10-02 01:03] LABS: HCG SERUM QL NEGATIVE
[2019-10-02 01:34] LABS: URINE AMPHETAMINE SCREEN NEGATIVE (Neg); URINE BARBITUATE SCREEN NEGATIVE (Neg); URINE BENZODIAZEPINES SCREEN NEGATIVE (Neg); URINE CANNABINOID SCREEN NEGATIVE (Neg); URINE COCAINE SCREEN NEGATIVE (Neg); URINE METHADONE SCREEN NEGATIVE (Neg); URINE OPIATE SCREEN POSITIVE (Neg); URINE PHENCYCLIDINE SCREEN NEGATIVE (Neg)
[2019-10-02 01:49] LABS: TOTAL CELLS COUNTED 100
[2019-10-02 01:50] LABS: ELLIPTOCYTES 1+; PLATELET ESTIMATE DECREASED
[2019-10-02] MEDS ORDERED: LACT10SO PO (02:35)
[2019-10-02] MEDS ORDERED: ACET325T55 PO (02:38)
[2019-10-02] MEDS ORDERED: PANT-47 PO (02:47)
[2019-10-02] MEDS ORDERED: FERR-106 PO (02:51)
[2019-10-02] MEDS ORDERED: acetaminophen 325mg tablet PO PRN (03:45)
[2019-10-02] MEDS ORDERED: ondansetron/PF 4mg/2ml inj IV PRN (03:45)
[2019-10-02] MEDS ORDERED: mag hydrox/Alum hydrox/simeth 30ml oral suspension PO PRN (03:45)
[2019-10-02] MEDS: calcium acetate 667mg (PhosLO) capsule PO SCH ×4 (04:26→17:56)
[2019-10-02] MEDS: normal saline 1000ml 1,000 ML IV SCH ×3 (04:26→23:43)
--- NOTE | 2019-10-02 04:30 | NUR ---
Patient in room PCU 3022. I have received report from Cap RN and had the opportunity to ask questions and assume patient care.
[2019-10-02 04:33] LABS: COLOR,URINE YELLOW (Yellow); GLUCOSE, URINE NEGATIVE (Neg); KETONES,URINE NEGATIVE (Neg); LEUKOCYTE ESTERASE ,URINE SMALL (Neg); NITRITES, URINE NEGATIVE (Neg); OCCULT BLOOD,URINE TRACE-LYSED (Neg); PROTEIN,URINE 100 mg/dl (Neg); UROBILINOGEN,URINE 0.2 E.U/dL (0.2-1.0)
--- NOTE | 2019-10-02 04:35 | NUR ---
Pt arrived on unit in stable condition.
[2019-10-02 04:36] LABS: CLARITY,URINE SLIGHTLY CLOUDY (Clear); UA COLLECTION TYPE URINAL
[2019-10-02 04:41] LABS: WBC,URINE 0-4 /HPF (0-4)
[2019-10-02 04:42] LABS: BACTERIA,URINE 1+ /HPF (Neg); HYALINE CASTS 0-3 /LPF (NEGATIVE); MUCUS STRANDS MODERATE /LPF (Neg); RBC,URINE 0-2 /HPF (0-2); TRANSITIONAL EPI CELLS,URINE MANY /HPF; WBC CLUMPS,URINE MODERATE /HPF (NEGATIVE)
[2019-10-02 04:43] LABS: SQUAMOUS EPITHELIAL CELL,UR MANY /LPF (FEW)
--- NOTE | 2019-10-02 05:10 | NUR ---
pt complaining of 10 out of 10 chest pain, got STAT ekg, called [facility] for order for nitro and morphine, but no new orders were received. It is thought to not be cardiac related.
[2019-10-02] MEDS: HYDROcodone/acetaminophen 10/325mg tab PO PRN (05:38)
--- NOTE | 2019-10-02 06:29 | NUR ---
Problems reprioritized. Patient report given, questions answered & plan of care reviewed with JAY JAY RN.
--- NOTE | 2019-10-02 06:30 | NUR ---
Patient in room PCU 3022. I have received report from REBECCA GOMEZ and had the opportunity to ask questions and assume patient care.
[2019-10-02] MEDS: spironolactone 50 MG tablet PO SCH (08:00)
[2019-10-02] MEDS: furosemide 40mg tablet PO SCH (08:00)
--- NOTE | 2019-10-02 18:26 | NUR ---
Problems reprioritized. Patient report given, questions answered & plan of care reviewed with REBECCA PADILLA.
--- NOTE | 2019-10-02 18:40 | NUR ---
Patient in room PCU 3022. I have received report from Joe FERNANDEZ and had the opportunity to ask questions and assume patient care.
[2019-10-02] MEDS: heparin, porcine 5000 units/ml vial SQ SCH (19:22)
[2019-10-02] MEDS: lactulose 20gm/30ml cup PO PRN (22:24)
[2019-10-03] MEDS ORDERED: simethicone 80mg chew tab PO ONE (01:10)
[2019-10-03] MEDS: HYDROcodone/acetaminophen 10/325mg tab PO PRN ×2 (01:20→20:13)
[2019-10-03 02:00] VITALS: BP 105/53
[2019-10-03] MEDS: diphenhydrAMINE 25mg capsule PO PRN ×2 (02:09→22:33)
[2019-10-03 06:00] VITALS: BP 99/58
--- NOTE | 2019-10-03 06:15 | NUR ---
Problems reprioritized. Patient report given, questions answered & plan of care reviewed with Joe RN.
--- NOTE | 2019-10-03 06:22 | NUR ---
Patient in room PCU 3022. I have received report from REBECCA PADILLA and had the opportunity to ask questions and assume patient care.
[2019-10-03 06:41] LABS: ALANINE AMINOTRANSFERASE 13 U/L (12-78); ALBUMIN/GLOBULIN RATIO 0.4 (1.1-1.5); ALKALINE PHOSPHATASE 10 IU/L (46-116); ANION GAP 8 (8-16); ASPARTATE AMINO TRANSFERASE 23 U/L (10-37); BILIRUBIN,TOTAL 0.2 MG/DL (0.1-1.0); BLOOD UREA NITROGEN 36 MG/DL (7-18); BUN/CREATININE RATIO 26.1 (6.6-38.0); CALCIUM 8.2 MG/DL (8.5-10.1); CHLORIDE 110 MMOL/L (99-107); CREATININE 1.38 MG/DL (0.40-0.90); POTASSIUM 3.9 MMOL/L (3.5-5.1); SODIUM 139 MMOL/L (135-145); TOTAL CARBON DIOXIDE 21.2 MMOL/L (24-32); TOTAL PROTEIN 6.7 G/DL (6.4-8.2); eGFR 41 ML/MIN
[2019-10-03 06:47] LABS: GLUCOSE 73 MG/DL (70-104)
[2019-10-03 06:55] LABS: BASOPHILS % (AUTO) 0.6 % (0-1); EOSINOPHILS % (AUTO) 1.2 % (0-6); HEMATOCRIT 24.2 % (35.0-45.0); LYMPHOCYTES # (AUTO) 0.7 X10'3 (1.1-4.8); LYMPHOCYTES % (AUTO) 46.6 % (21-51); MEAN CORPUSCULAR HEMOGLOBIN 29.6 PG (27.0-31.0); MEAN CORPUSCULAR HGB CONC 32.8 g/dL (33.0-36.5); MEAN CORPUSCULAR VOLUME 90.3 FL (78-98); MEAN PLATELET VOLUME 9.4 FL (7.4-10.4); MONOCYTES # (AUTO) 0.2 X10'3 (0-0.9); MONOCYTES % (AUTO) 12.5 % (2-12); NEUTROPHILS # (AUTO) 0.6 X10'3 (1.8-7.7); NEUTROPHILS % (AUTO) 39.1 % (42-75); RED BLOOD COUNT 2.69 X10'6 (4.20-5.60); RED CELL DISTRIBUTION WIDTH 14.6 % (11.5-14.5); WHITE BLOOD COUNT 1.4 X10'3 (4.5-11.0)
[2019-10-03 07:26] LABS: PLATELET COUNT 46 X10'3 (140-440)
--- NOTE | 2019-10-03 07:30 | NUR ---
PAGER ID: [phone] MESSAGE: DR. VALDES, [id number]/[id number], CRITICAL LAB:PLT= 46. WAS 60 YESTERDAY. PLAN TO HOLD SUBCUTANEOUS HEPARIN. JAY JAY [id number]. TY
[2019-10-03] MEDS: furosemide 40mg tablet PO SCH ×2 (08:00→09:52)
[2019-10-03] MEDS: spironolactone 50 MG tablet PO SCH ×2 (08:00→09:52)
[2019-10-03] MEDS: calcium acetate 667mg (PhosLO) capsule PO SCH ×3 (08:00→18:00)
[2019-10-03] MEDS: heparin, porcine 5000 units/ml vial SQ SCH ×2 (08:00→19:20)
[2019-10-03 09:33] LABS: ANISOCYTOSIS 1+; PLATELET ESTIMATE DECREASED; TOTAL CELLS COUNTED 100
[2019-10-03 09:34] LABS: ELLIPTOCYTES FEW
[2019-10-03 09:35] LABS: ROULEAUX 1+
[2019-10-03 09:38] LABS: SMUDGE CELLS 2+
[2019-10-03 11:00] VITALS: BP 105/50
[2019-10-03 15:00] VITALS: BP 108/61
--- NOTE | 2019-10-03 16:37 | NUR ---
PAGER ID: [phone] MESSAGE: DR. VALDES, [id number]/YULIYA, [facility] JUST CALLED, THEY SAID TO CALL THEM [facility] IF WE STILL WANT TO TRANSFER PT. JAY JAY VALDERRAMA [id number].
--- NOTE | 2019-10-03 18:36 | NUR ---
Problems reprioritized. Patient report given, questions answered & plan of care reviewed with REBECCA ESCOTO.
[2019-10-03 19:00] VITALS: BP 115/63
--- NOTE | 2019-10-03 19:19 | NUR ---
Patient in room PCU 3022. I have received report from Joe Wiley and had the opportunity to ask questions and assume patient care.
[2019-10-03] MEDS: lactulose 20gm/30ml cup PO PRN (22:26)
[2019-10-03 23:00] VITALS: BP 122/59
[2019-10-04 04:31] VITALS: BP 109/54
[2019-10-04] MEDS: acetaminophen 325mg tablet PO PRN ×2 (04:35→22:58)
[2019-10-04 06:16] LABS: BASOPHILS % (AUTO) 0.6 % (0-1); EOSINOPHILS % (AUTO) 1.8 % (0-6); HEMATOCRIT 25.2 % (35.0-45.0); HEMOGLOBIN 8.4 g/dl (12.0-16.0); LYMPHOCYTES # (AUTO) 0.7 X10'3 (1.1-4.8); LYMPHOCYTES % (AUTO) 52.6 % (21-51); MEAN CORPUSCULAR HEMOGLOBIN 29.9 PG (27.0-31.0); MEAN CORPUSCULAR HGB CONC 33.2 g/dL (33.0-36.5); MEAN CORPUSCULAR VOLUME 90.2 FL (78-98); MEAN PLATELET VOLUME 8.6 FL (7.4-10.4); MONOCYTES # (AUTO) 0.2 X10'3 (0-0.9); MONOCYTES % (AUTO) 16.2 % (2-12); NEUTROPHILS # (AUTO) 0.4 X10'3 (1.8-7.7); NEUTROPHILS % (AUTO) 28.8 % (42-75); RED BLOOD COUNT 2.79 X10'6 (4.20-5.60); RED CELL DISTRIBUTION WIDTH 14.8 % (11.5-14.5); WHITE BLOOD COUNT 1.3 X10'3 (4.5-11.0)
[2019-10-04 06:18] LABS: ALANINE AMINOTRANSFERASE 15 U/L (12-78); ALBUMIN 2.2 G/DL (3.4-5.0); ALBUMIN/GLOBULIN RATIO 0.4 (1.1-1.5); ALKALINE PHOSPHATASE 12 IU/L (46-116); ANION GAP 8 (8-16); ASPARTATE AMINO TRANSFERASE 28 U/L (10-37); BILIRUBIN,TOTAL 0.2 MG/DL (0.1-1.0); BLOOD UREA NITROGEN 39 MG/DL (7-18); CALCIUM 8.9 MG/DL (8.5-10.1); CHLORIDE 107 MMOL/L (99-107); CREATININE 1.56 MG/DL (0.40-0.90); POTASSIUM 3.9 MMOL/L (3.5-5.1); SODIUM 139 MMOL/L (135-145); TOTAL CARBON DIOXIDE 23.9 MMOL/L (24-32); TOTAL PROTEIN 7.3 G/DL (6.4-8.2); eGFR 36 ML/MIN
[2019-10-04 06:20] LABS: GLUCOSE 79 MG/DL (70-104)
[2019-10-04 06:22] LABS: PLATELET COUNT 44 X10'3 (140-440)
--- NOTE | 2019-10-04 06:42 | NUR ---
PAGER ID: [phone] MESSAGE: [id number] Donovan Marialuisa. Platelet count 44 down from 46 yesterday. Patient here for severe weakenss, has pancytopenia currently sees director chemistry outpatient.
--- NOTE | 2019-10-04 06:49 | NUR ---
Patient in room PCU 3022. I have received report from Dontae FERNANDEZ and had the opportunity to ask questions and assume patient care.
[2019-10-04 07:00] VITALS: BP 105/51
[2019-10-04 07:13] LABS: PLATELET ESTIMATE DECREASED; TOTAL CELLS COUNTED 100
[2019-10-04] MEDS: heparin, porcine 5000 units/ml vial SQ SCH ×2 (08:00→18:31)
[2019-10-04] MEDS: spironolactone 50 MG tablet PO SCH (08:58)
[2019-10-04] MEDS: calcium acetate 667mg (PhosLO) capsule PO SCH ×3 (08:59→19:37)
[2019-10-04] MEDS: HYDROcodone/acetaminophen 10/325mg tab PO PRN (08:59)
[2019-10-04] MEDS: furosemide 40mg tablet PO SCH (08:59)
[2019-10-04] MEDS ORDERED: pneumococcal 23-VAL P-sac vacc 25 mcg/0.5ml vial IMVAC ONE (10:00)
[2019-10-04 11:00] VITALS: BP 100/60
[2019-10-04] MEDS: lactulose 20gm/30ml cup PO PRN (12:58)
[2019-10-04 15:00] VITALS: BP 135/81
--- NOTE | 2019-10-04 16:20 | NUR ---
Caryn GRIMALDO PAGER ID: [phone] MESSAGE: Daisy PCU. RE Marialuisa, N 3022. Tested Covid NEGATIVE. Please come sign transfer orders at charge desk. Thank you
[2019-10-04 18:00] VITALS: BP 115/59
--- NOTE | 2019-10-04 18:16 | NUR ---
Problems reprioritized. Patient report given, questions answered & plan of care reviewed with Dontae RN.
--- NOTE | 2019-10-04 18:43 | NUR ---
Patient in room PCU 3022. I have received report from Ion FERNANDEZ and had the opportunity to ask questions and assume patient care.
[2019-10-04 22:00] VITALS: BP 100/69
--- NOTE | 2019-10-04 22:39 | NUR ---
PAGER ID: [phone] MESSAGE: [facility] room 3022. Here for severe weakness, going to be transfered to [facility] within the next few days. Has not had a bowel movement since the . Has been taking lactulose. Pt would like something stronger. EXT 1076
[2019-10-04] MEDS ORDERED: bisacodyl 10mg suppository rectal RC STA (22:46)
[2019-10-04] MEDS ORDERED: magnesium citrate 296ml oral solution PO ONE (22:50)
[2019-10-04] MEDS: diphenhydrAMINE 25mg capsule PO PRN (22:59)
[2019-10-05] MEDS ORDERED: magnesium citrate 296ml oral solution PO PRN (01:40)
[2019-10-05 02:00] VITALS: BP 107/62
[2019-10-05] MEDS: HYDROcodone/acetaminophen 10/325mg tab PO PRN ×2 (04:03→19:55)
[2019-10-05 05:13] LABS: HBSAG SCREEN Negative (Negative); HEPATITIS C ANTIBODY 0.1 s/co ratio (0.0-0.9)
[2019-10-05 05:54] LABS: BASOPHILS % (AUTO) 1.6 % (0-1); EOSINOPHILS % (AUTO) 1.6 % (0-6); HEMATOCRIT 27.6 % (35.0-45.0); HEMOGLOBIN 9.2 g/dl (12.0-16.0); LYMPHOCYTES # (AUTO) 0.7 X10'3 (1.1-4.8); LYMPHOCYTES % (AUTO) 40.6 % (21-51); MEAN CORPUSCULAR HEMOGLOBIN 29.8 PG (27.0-31.0); MEAN CORPUSCULAR HGB CONC 33.2 g/dL (33.0-36.5); MEAN CORPUSCULAR VOLUME 89.9 FL (78-98); MEAN PLATELET VOLUME 9.4 FL (7.4-10.4); MONOCYTES # (AUTO) 0.3 X10'3 (0-0.9); MONOCYTES % (AUTO) 15.4 % (2-12); NEUTROPHILS # (AUTO) 0.7 X10'3 (1.8-7.7); NEUTROPHILS % (AUTO) 40.8 % (42-75); PLATELET COUNT 55 X10'3 (140-440); RED BLOOD COUNT 3.07 X10'6 (4.20-5.60); RED CELL DISTRIBUTION WIDTH 14.8 % (11.5-14.5); WHITE BLOOD COUNT 1.6 X10'3 (4.5-11.0)
[2019-10-05 06:00] VITALS: BP 105/54
[2019-10-05 06:13] LABS: ALANINE AMINOTRANSFERASE 10 U/L (12-78); ALBUMIN 2.2 G/DL (3.4-5.0); ALBUMIN/GLOBULIN RATIO 0.4 (1.1-1.5); ALKALINE PHOSPHATASE 12 IU/L (46-116); ANION GAP 9 (8-16); ASPARTATE AMINO TRANSFERASE 29 U/L (10-37); BILIRUBIN,TOTAL 0.3 MG/DL (0.1-1.0); BLOOD UREA NITROGEN 38 MG/DL (7-18); BUN/CREATININE RATIO 24.4 (6.6-38.0); CALCIUM 9.9 MG/DL (8.5-10.1); CHLORIDE 104 MMOL/L (99-107); CREATININE 1.56 MG/DL (0.40-0.90); GLUCOSE 82 MG/DL (70-104); POTASSIUM 4.1 MMOL/L (3.5-5.1); SODIUM 136 MMOL/L (135-145); TOTAL CARBON DIOXIDE 23.5 MMOL/L (24-32); TOTAL PROTEIN 7.7 G/DL (6.4-8.2); eGFR 36 ML/MIN
--- NOTE | 2019-10-05 06:24 | NUR ---
Problems reprioritized. Patient report given, questions answered & plan of care reviewed with Ion Wiley.
--- NOTE | 2019-10-05 06:33 | NUR ---
Patient in room PCU 3022. I have received report from Dontae FERNANDEZ and had the opportunity to ask questions and assume patient care.
[2019-10-05 06:52] LABS: PLATELET ESTIMATE DECREASED; TOTAL CELLS COUNTED 100
[2019-10-05] MEDS: heparin, porcine 5000 units/ml vial SQ SCH (08:00)
[2019-10-05] MEDS: calcium acetate 667mg (PhosLO) capsule PO SCH ×2 (09:01→13:00)
[2019-10-05] MEDS: furosemide 40mg tablet PO SCH (09:01)
[2019-10-05] MEDS: spironolactone 50 MG tablet PO SCH (09:01)
[2019-10-05] MEDS: acetaminophen 325mg tablet PO PRN (09:02)
[2019-10-05 11:00] VITALS: BP 104/61
[2019-10-05 15:00] VITALS: BP 101/59
--- NOTE | 2019-10-05 18:00 | NUR ---
Patient in room PCU 3022. I have received report from Ion and had the opportunity to ask questions and assume patient care.
--- NOTE | 2019-10-05 18:39 | NUR ---
Problems reprioritized. Patient report given, questions answered & plan of care reviewed with Erlinda FERNANDEZ.
--- NOTE | 2019-10-05 19:57 | NUR ---
Patient being transferred by [facility] ambulance with Debbie Tolentino to [facility]. Patient's belongings including purse and personal medications from the pharmacy went with the patient. Patient left the floor at 1999.
--- NOTE | 2019-10-05 20:09 | NUR ---
Discharged at 1957 from PCU. Patient was taken to [facility] by [facility] using a gurney. Report was called to REBECCA Mcdonald at [facility] at 1935. She was taken off the heart monitoring mobile device. Patient was A&Ox4 and vital signs were: BP: 135/82, HR 79, RR 13, SpO2 95% on room air.
[2019-10-06 11:10] LABS: ATYPICAL PANCA <1:20 titer (Neg:<1:20); CYTOPLASMIC (C-ANCA) <1:20 titer (Neg:<1:20); PERINUCLEAR (P-ANCA) <1:20 titer (Neg:<1:20)
== END 2019-10-05 20:00 | disposition short-term general hospital (02) | DRG 469 ==
LOC: ER 23:09 → ED HOLD 10-02 03:43 → PCU 3S 10-02 04:46
PROVIDERS: ADMIT Internal Medicine; ATTEND Internal Medicine
PROC: 3E0234Z Introduction of Serum, Toxoid and Vaccine into Muscle, Percutaneous Approach (ICD-10-PCS; principal; 2019-10-04)
DX: N17.9 Acute kidney failure, unspecified (principal); G62.9 Polyneuropathy, unspecified; I50.9 Heart failure, unspecified; N18.3 Chronic kidney disease, stage 3 (moderate); Y92.89 Other specified places as the place of occurrence of the external cause; Y99.8 Other external cause status; Y93.E1 Activity, personal bathing and showering; W18.2XXA Fall in (into) shower or empty bathtub, initial encounter; Z82.3 Family history of stroke; Z86.73 Personal history of transient ischemic attack (TIA), and cerebral infarction without residual deficits; Z87.891 Personal history of nicotine dependence; M19.90 Unspecified osteoarthritis, unspecified site; G89.29 Other chronic pain; Z23 Encounter for immunization; Z20.828 Contact with and (suspected) exposure to other viral communicable diseases
CPT/HCPCS: 36415; 70551; 71045; 72141; 80053; 80305; 81001; 82140; 82550; 82595; 82607; 83735; 84100; 84484; 84703; 85025; 85651; 85730; 86256; 86803; 87081; 87340; 87635; 90732; 93005; 97110; 97112; 97161; 97530; 99285; G0378; J2405; J7030; Q0163

== ENCOUNTER 2019-10-19 14:41 | Inpatient (IN) | payer MEDICAID ==
[~2019-10-19] VITALS: Ht 157.5 cm; Wt 49.9 kg
[~2019-10-19 14:41] MED LIST changes: +ACET325T55 PO; +FERR-106 PO; +LACT10SO PO; -PRED20TA PO
--- NOTE | 2019-10-19 18:00 | NUR ---
Problems reprioritized. Patient report given, questions answered & plan of care reviewed with
[2019-10-19 22:00] VITALS: BP 127/64
[2019-10-19] MEDS ORDERED: mag hydrox/Alum hydrox/simeth 30ml oral suspension PO PRN (23:20)
[2019-10-19] MEDS ORDERED: acetaminophen 325mg tablet PO PRN (23:20)
[2019-10-19] MEDS ORDERED: magnesium hydroxide 30ml (MOM) UD suspension PO PRN (23:20)
[2019-10-19] MEDS ORDERED: HYDR200T80 PO (23:45)
[2019-10-19] MEDS ORDERED: THIAMINE MONONITRATE PO (23:45)
[2019-10-19] MEDS ORDERED: GABA300C PO (23:45)
[2019-10-19] MEDS ORDERED: MELA3TAB39 PO (23:45)
[2019-10-19] MEDS ORDERED: VITD400T PO (23:45)
[2019-10-19] MEDS ORDERED: DICLOFENAC 1% TOP (23:45)
[2019-10-19] MEDS ORDERED: DULO30CA52 PO (23:45)
[2019-10-19] MEDS ORDERED: PRED50TA PO (23:45)
[2019-10-19] MEDS ORDERED: SENN-263 PO (23:45)
[2019-10-19] MEDS ORDERED: LACT10SO PO (23:45)
[2019-10-19] MEDS ORDERED: POLY17PO10 PO (23:45)
[2019-10-19] MEDS ORDERED: SULF1TAB49 PO (23:45)
[2019-10-19] MEDS ORDERED: LANS30CA56 PO (23:45)
[2019-10-19] MEDS ORDERED: CLOT15CR10 TOP (23:45)
[2019-10-19] MEDS ORDERED: LIDO700A32 TOP (23:45)
[2019-10-19] MEDS ORDERED: CALC500T11 PO (23:45)
[2019-10-20 06:10] VITALS: BP 125/61
[2019-10-20 06:10] LABS: BASOPHILS % (AUTO) 0.1 % (0-1); EOSINOPHILS % (AUTO) 0.8 % (0-6); HEMATOCRIT 26.4 % (35.0-45.0); HEMOGLOBIN 8.6 g/dl (12.0-16.0); LYMPHOCYTES # (AUTO) 0.6 X10'3 (1.1-4.8); MEAN CORPUSCULAR HEMOGLOBIN 30.3 PG (27.0-31.0); MEAN CORPUSCULAR HGB CONC 32.5 g/dL (33.0-36.5); MEAN CORPUSCULAR VOLUME 93.2 FL (78-98); MEAN PLATELET VOLUME 8.3 FL (7.4-10.4); MONOCYTES # (AUTO) 0.3 X10'3 (0-0.9); NEUTROPHILS # (AUTO) 1.8 X10'3 (1.8-7.7); NEUTROPHILS % (AUTO) 66.1 % (42-75); PLATELET COUNT 84 X10'3 (140-440); RED BLOOD COUNT 2.83 X10'6 (4.20-5.60); RED CELL DISTRIBUTION WIDTH 15.4 % (11.5-14.5); WHITE BLOOD COUNT 2.7 X10'3 (4.5-11.0)
--- NOTE | 2019-10-20 06:23 | NUR ---
Patient in room ORTHO 4017. I have received report from Karen FERNANDEZ and had the opportunity to ask questions and assume patient care.
[2019-10-20 06:49] LABS: ALANINE AMINOTRANSFERASE 33 U/L (12-78); ALBUMIN/GLOBULIN RATIO 0.4 (1.1-1.5); ALKALINE PHOSPHATASE 11 IU/L (46-116); ANION GAP 8 (8-16); ASPARTATE AMINO TRANSFERASE 22 U/L (10-37); BILIRUBIN,TOTAL 0.3 MG/DL (0.1-1.0); BLOOD UREA NITROGEN 33 MG/DL (7-18); BUN/CREATININE RATIO 30.6 (6.6-38.0); CALCIUM 7.4 MG/DL (8.5-10.1); CHLORIDE 109 MMOL/L (99-107); CREATININE 1.08 MG/DL (0.40-0.90); POTASSIUM 5.3 MMOL/L (3.5-5.1); SODIUM 137 MMOL/L (135-145); TOTAL CARBON DIOXIDE 19.6 MMOL/L (24-32); TOTAL PROTEIN 7.3 G/DL (6.4-8.2); eGFR 54 ML/MIN
[2019-10-20 07:05] LABS: GLUCOSE 82 MG/DL (70-104)
--- NOTE | 2019-10-20 08:12 | NUR ---
I paged Dr. Cook about patient K 5.3 and med rec. She is aware.
[2019-10-20 10:00] VITALS: BP 119/67
[2019-10-20 11:11] LABS: NUCLEATED RED BLOOD CELLS 2 /100WBC (0-0); TOTAL CELLS COUNTED 100
[2019-10-20 11:12] LABS: PLATELET ESTIMATE DECREASED
[2019-10-20 11:13] LABS: ANISOCYTOSIS 1+
[2019-10-20] MEDS: morphine 2 MG/ML inj. syringe IV PRN ×2 (17:21→23:57)
[2019-10-20 18:00] VITALS: BP 105/56
--- NOTE | 2019-10-20 18:25 | NUR ---
Patient in room ORTHO 4017. I have received report from Salena FERNANDEZ and had the opportunity to ask questions and assume patient care.
[2019-10-20] MEDS ORDERED: clotrimazole topical cream 15gm tube TP PRN (20:00)
[2019-10-20] MEDS: polyethylene glycol 3350 17gm powd pack PO SCH (20:53)
[2019-10-20] MEDS: gabapentin 300mg capsule PO SCH (20:53)
[2019-10-20] MEDS: Melatonin 3mg tablet PO SCH (20:53)
[2019-10-20] MEDS: HYDROcodone/acetaminophen 10/325mg tab PO PRN (20:54)
[2019-10-20] MEDS: ondansetron/PF 4mg/2ml inj IV PRN (21:46)
[2019-10-20 22:00] VITALS: BP 119/62
[2019-10-21] MEDS: HYDROcodone/acetaminophen 10/325mg tab PO PRN (04:49)
[2019-10-21 06:10] VITALS: BP 111/54
--- NOTE | 2019-10-21 06:23 | NUR ---
Problems reprioritized. Patient report given, questions answered & plan of care reviewed with Salena FERNANDEZ.
--- NOTE | 2019-10-21 06:28 | NUR ---
Patient in room ORTHO 4017. I have received report from Treasure FERNANDEZ and had the opportunity to ask questions and assume patient care.
--- NOTE | 2019-10-21 06:29 | NUR ---
Patient in room ORTHO 4017. I have received report from Treasure FERNANDEZ and had the opportunity to ask questions and assume patient care.
[2019-10-21 06:36] LABS: BASOPHILS % (AUTO) 0.4 % (0-1); EOSINOPHILS # (AUTO) 0.1 X10'3 (0-0.9); HEMATOCRIT 25.1 % (35.0-45.0); HEMOGLOBIN 8.3 g/dl (12.0-16.0); LYMPHOCYTES # (AUTO) 0.6 X10'3 (1.1-4.8); LYMPHOCYTES % (AUTO) 25.4 % (21-51); MEAN CORPUSCULAR HEMOGLOBIN 30.9 PG (27.0-31.0); MEAN CORPUSCULAR HGB CONC 33.2 g/dL (33.0-36.5); MEAN CORPUSCULAR VOLUME 92.9 FL (78-98); MEAN PLATELET VOLUME 7.9 FL (7.4-10.4); MONOCYTES # (AUTO) 0.2 X10'3 (0-0.9); MONOCYTES % (AUTO) 10.3 % (2-12); NEUTROPHILS # (AUTO) 1.4 X10'3 (1.8-7.7); NEUTROPHILS % (AUTO) 59.9 % (42-75); PLATELET COUNT 84 X10'3 (140-440); RED CELL DISTRIBUTION WIDTH 15.5 % (11.5-14.5); WHITE BLOOD COUNT 2.3 X10'3 (4.5-11.0)
[2019-10-21 06:54] LABS: ALANINE AMINOTRANSFERASE 33 U/L (12-78); ALBUMIN 2.1 G/DL (3.4-5.0); ALBUMIN/GLOBULIN RATIO 0.4 (1.1-1.5); ALKALINE PHOSPHATASE 10 IU/L (46-116); ANION GAP 6 (8-16); ASPARTATE AMINO TRANSFERASE 24 U/L (10-37); BILIRUBIN,TOTAL 0.4 MG/DL (0.1-1.0); BLOOD UREA NITROGEN 36 MG/DL (7-18); BUN/CREATININE RATIO 27.7 (6.6-38.0); CALCIUM 7.7 MG/DL (8.5-10.1); CHLORIDE 110 MMOL/L (99-107); POTASSIUM 4.9 MMOL/L (3.5-5.1); SODIUM 137 MMOL/L (135-145); TOTAL CARBON DIOXIDE 20.8 MMOL/L (24-32); TOTAL PROTEIN 7.2 G/DL (6.4-8.2); eGFR 44 ML/MIN
[2019-10-21 06:57] LABS: GLUCOSE 85 MG/DL (70-104)
[2019-10-21] MEDS: thiamine 100mg tablet PO SCH (07:29)
[2019-10-21] MEDS: morphine 2 MG/ML inj. syringe IV PRN ×3 (07:29→21:37)
[2019-10-21] MEDS: duloxetine 30mg CAPSULE.DR PO SCH (07:29)
[2019-10-21] MEDS: hydroxychloroquine 200mg tablet PO SCH (07:29)
[2019-10-21] MEDS: gabapentin 300mg capsule PO SCH ×3 (07:29→20:32)
[2019-10-21] MEDS: pantoprazole 40mg Tablet.DR PO SCH (07:30)
[2019-10-21] MEDS: furosemide 40mg tablet PO SCH (07:30)
[2019-10-21] MEDS: lactulose 20gm/30ml cup PO SCH (07:30)
[2019-10-21] MEDS: LIDOcaine 5% patch TP SCH (07:31)
[2019-10-21] MEDS: prednisone 10mg tablet PO SCH (07:33)
[2019-10-21 07:43] LABS: ANISOCYTOSIS 1+; PLATELET ESTIMATE DECREASED; TOTAL CELLS COUNTED 100
[2019-10-21] MEDS ORDERED: spironolactone 50 MG tablet PO SCH (08:00)
[2019-10-21] MEDS: ondansetron/PF 4mg/2ml inj IV PRN (09:56)
[2019-10-21 10:00] VITALS: BP 109/57
--- NOTE | 2019-10-21 15:48 | NUR ---
[facility] SOLO2 Catheter w/Luis A 3CG Tip. REF [id number], LOT [id number], EXP Date 05/10/2020.
[2019-10-21 18:00] VITALS: BP 111/61
--- NOTE | 2019-10-21 18:30 | NUR ---
5Patient in room ORTHO 4017. I have received report from GLORIA FERNANDEZ and had the opportunity to ask questions and assume patient care.
--- NOTE | 2019-10-21 18:50 | NUR ---
Problems reprioritized. Patient report given, questions answered & plan of care reviewed with Karen FERNANDEZ.
[2019-10-21] MEDS: polyethylene glycol 3350 17gm powd pack PO SCH (20:32)
[2019-10-21] MEDS: Melatonin 3mg tablet PO SCH (20:32)
[2019-10-21 22:00] VITALS: BP 108/66
[2019-10-22] MEDS: morphine 2 MG/ML inj. syringe IV PRN ×3 (05:18→20:24)
[2019-10-22 06:00] VITALS: BP 109/61
--- NOTE | 2019-10-22 06:37 | NUR ---
Problems reprioritized. Patient report given, questions answered & plan of care reviewed with BRITT FERNANDEZ.
[2019-10-22 06:38] LABS: BASOPHILS % (AUTO) 0.3 % (0-1); EOSINOPHILS % (AUTO) 1.3 % (0-6); HEMATOCRIT 24.3 % (35.0-45.0); HEMOGLOBIN 7.9 g/dl (12.0-16.0); LYMPHOCYTES # (AUTO) 0.4 X10'3 (1.1-4.8); LYMPHOCYTES % (AUTO) 24.9 % (21-51); MEAN CORPUSCULAR HEMOGLOBIN 30.6 PG (27.0-31.0); MEAN CORPUSCULAR HGB CONC 32.6 g/dL (33.0-36.5); MEAN CORPUSCULAR VOLUME 93.8 FL (78-98); MEAN PLATELET VOLUME 8.2 FL (7.4-10.4); MONOCYTES # (AUTO) 0.2 X10'3 (0-0.9); MONOCYTES % (AUTO) 10.8 % (2-12); NEUTROPHILS # (AUTO) 1.1 X10'3 (1.8-7.7); NEUTROPHILS % (AUTO) 62.7 % (42-75); PLATELET COUNT 73 X10'3 (140-440); RED BLOOD COUNT 2.58 X10'6 (4.20-5.60); WHITE BLOOD COUNT 1.7 X10'3 (4.5-11.0)
[2019-10-22 06:50] LABS: ALANINE AMINOTRANSFERASE 34 U/L (12-78); ALBUMIN 2.1 G/DL (3.4-5.0); ALBUMIN/GLOBULIN RATIO 0.4 (1.1-1.5); ALKALINE PHOSPHATASE 10 IU/L (46-116); ANION GAP 8 (8-16); ASPARTATE AMINO TRANSFERASE 23 U/L (10-37); BILIRUBIN,TOTAL 0.3 MG/DL (0.1-1.0); BLOOD UREA NITROGEN 32 MG/DL (7-18); CALCIUM 7.6 MG/DL (8.5-10.1); CHLORIDE 109 MMOL/L (99-107); CREATININE 0.97 MG/DL (0.40-0.90); POTASSIUM 4.1 MMOL/L (3.5-5.1); SODIUM 140 MMOL/L (135-145); TOTAL CARBON DIOXIDE 23.5 MMOL/L (24-32); TOTAL PROTEIN 6.9 G/DL (6.4-8.2); eGFR 62 ML/MIN
[2019-10-22 06:51] LABS: GLUCOSE 84 MG/DL (70-104)
[2019-10-22] MEDS: lactulose 20gm/30ml cup PO SCH (07:30)
[2019-10-22] MEDS: LIDOcaine 5% patch TP SCH (08:27)
[2019-10-22] MEDS: prednisone 10mg tablet PO SCH (08:28)
[2019-10-22] MEDS: duloxetine 30mg CAPSULE.DR PO SCH (08:29)
[2019-10-22] MEDS: sulfamethoxazole/trimethoprim DS (800/160mg) tablet PO SCH (08:29)
[2019-10-22] MEDS: thiamine 100mg tablet PO SCH (08:29)
[2019-10-22] MEDS: pantoprazole 40mg Tablet.DR PO SCH (08:29)
[2019-10-22] MEDS: hydroxychloroquine 200mg tablet PO SCH (08:29)
[2019-10-22] MEDS: furosemide 40mg tablet PO SCH (08:30)
[2019-10-22] MEDS: gabapentin 300mg capsule PO SCH ×2 (08:30→20:28)
[2019-10-22 10:17] LABS: TOTAL CELLS COUNTED 100
[2019-10-22 10:32] LABS: PLATELET ESTIMATE DECREASED; SCHISTOCYTES FEW; TEAR DROP CELLS FEW
[2019-10-22 10:33] LABS: ELLIPTOCYTES FEW
[2019-10-22 11:00] VITALS: BP 127/70
[2019-10-22] MEDS ORDERED: bisacodyl 10mg suppository rectal RC STA (12:44)
[2019-10-22 17:05] VITALS: BP 129/69
--- NOTE | 2019-10-22 18:30 | NUR ---
Problems reprioritized. Patient report given, questions answered & plan of care reviewed with Treasure FERNANDEZ.
--- NOTE | 2019-10-22 18:30 | NUR ---
Patient in room ORTHO 4007. I have received report from Christi FERNANDEZ and had the opportunity to ask questions and assume patient care.
[2019-10-22] MEDS: polyethylene glycol 3350 17gm powd pack PO SCH (20:28)
[2019-10-22] MEDS: Melatonin 3mg tablet PO SCH (20:28)
[2019-10-22 22:00] VITALS: BP 110/56
[2019-10-23] MEDS: morphine 2 MG/ML inj. syringe IV PRN ×2 (02:26→23:35)
[2019-10-23 05:50] LABS: BASOPHILS % (AUTO) 0.3 % (0-1); EOSINOPHILS % (AUTO) 0.5 % (0-6); HEMATOCRIT 23.9 % (35.0-45.0); LYMPHOCYTES # (AUTO) 0.4 X10'3 (1.1-4.8); LYMPHOCYTES % (AUTO) 21.4 % (21-51); MEAN CORPUSCULAR HEMOGLOBIN 30.9 PG (27.0-31.0); MEAN CORPUSCULAR HGB CONC 33.4 g/dL (33.0-36.5); MEAN CORPUSCULAR VOLUME 92.5 FL (78-98); MEAN PLATELET VOLUME 7.9 FL (7.4-10.4); MONOCYTES # (AUTO) 0.2 X10'3 (0-0.9); MONOCYTES % (AUTO) 10.2 % (2-12); NEUTROPHILS # (AUTO) 1.3 X10'3 (1.8-7.7); NEUTROPHILS % (AUTO) 67.6 % (42-75); PLATELET COUNT 64 X10'3 (140-440); RED BLOOD COUNT 2.58 X10'6 (4.20-5.60); WHITE BLOOD COUNT 1.9 X10'3 (4.5-11.0)
--- NOTE | 2019-10-23 06:00 | NUR ---
Patient in room ORTHO 4007. I have received report from [facility] and had the opportunity to ask questions and assume patient care.
--- NOTE | 2019-10-23 06:20 | NUR ---
Problems reprioritized. Patient report given, questions answered & plan of care reviewed with Mari FERNANDEZ.
[2019-10-23 06:23] LABS: ALANINE AMINOTRANSFERASE 33 U/L (12-78); ALBUMIN 2.2 G/DL (3.4-5.0); ALBUMIN/GLOBULIN RATIO 0.5 (1.1-1.5); ALKALINE PHOSPHATASE 13 IU/L (46-116); ANION GAP 6 (8-16); ASPARTATE AMINO TRANSFERASE 22 U/L (10-37); BILIRUBIN,TOTAL 0.3 MG/DL (0.1-1.0); BLOOD UREA NITROGEN 35 MG/DL (7-18); BUN/CREATININE RATIO 31.8 (6.6-38.0); CALCIUM 7.8 MG/DL (8.5-10.1); CHLORIDE 110 MMOL/L (99-107); POTASSIUM 4.3 MMOL/L (3.5-5.1); SODIUM 141 MMOL/L (135-145); TOTAL CARBON DIOXIDE 25.1 MMOL/L (24-32); eGFR 53 ML/MIN
[2019-10-23 06:24] LABS: PLATELET ESTIMATE DECREASED; TOTAL CELLS COUNTED 100
[2019-10-23 06:25] LABS: ANISOCYTOSIS 1+; ELLIPTOCYTES FEW; SCHISTOCYTES FEW; TEAR DROP CELLS FEW
[2019-10-23 06:27] LABS: GLUCOSE 85 MG/DL (70-104)
[2019-10-23] MEDS: lactulose 20gm/30ml cup PO SCH (07:30)
[2019-10-23] MEDS: hydroxychloroquine 200mg tablet PO SCH (07:45)
[2019-10-23] MEDS: sulfamethoxazole/trimethoprim DS (800/160mg) tablet PO SCH (07:45)
[2019-10-23] MEDS: duloxetine 30mg CAPSULE.DR PO SCH (07:45)
[2019-10-23] MEDS: pantoprazole 40mg Tablet.DR PO SCH (07:46)
[2019-10-23] MEDS: thiamine 100mg tablet PO SCH (07:46)
[2019-10-23] MEDS: gabapentin 300mg capsule PO SCH ×2 (07:46→20:07)
[2019-10-23] MEDS: furosemide 40mg tablet PO SCH (07:46)
[2019-10-23] MEDS: prednisone 10mg tablet PO SCH (07:46)
[2019-10-23] MEDS: LIDOcaine 5% patch TP SCH (07:47)
[2019-10-23] MEDS: HYDROcodone/acetaminophen 10/325mg tab PO PRN (08:04)
[2019-10-23] MEDS ORDERED: oxyCODONE/APAP 10/325mg tablet PO ONE (08:40)
[2019-10-23 10:00] VITALS: BP 102/50
[2019-10-23] MEDS: oxyCODONE/APAP 10/325mg tablet PO PRN ×2 (14:12→20:10)
[2019-10-23 18:00] VITALS: BP 157/88
--- NOTE | 2019-10-23 18:15 | NUR ---
Problems reprioritized. Patient report given, questions answered & plan of care reviewed with Jessica.
--- NOTE | 2019-10-23 18:18 | NUR ---
Patient in room ORTHO 4007. I have received report from Mari FERNANDEZ and had the opportunity to ask questions and assume patient care.
[2019-10-23] MEDS: polyethylene glycol 3350 17gm powd pack PO SCH (20:06)
[2019-10-23] MEDS: Melatonin 3mg tablet PO SCH (20:06)
[2019-10-23 22:00] VITALS: BP 127/68
[2019-10-24] MEDS: oxyCODONE/APAP 10/325mg tablet PO PRN ×4 (01:50→20:49)
[2019-10-24 02:00] VITALS: BP 114/62
[2019-10-24] MEDS: morphine 2 MG/ML inj. syringe IV PRN (05:12)
[2019-10-24 06:00] VITALS: BP 105/59
[2019-10-24 06:28] LABS: BASOPHILS % (AUTO) 0.2 % (0-1); EOSINOPHILS % (AUTO) 0.3 % (0-6); HEMATOCRIT 23.6 % (35.0-45.0); HEMOGLOBIN 7.8 g/dl (12.0-16.0); LYMPHOCYTES # (AUTO) 0.4 X10'3 (1.1-4.8); LYMPHOCYTES % (AUTO) 18.5 % (21-51); MEAN CORPUSCULAR HGB CONC 33.3 g/dL (33.0-36.5); MEAN CORPUSCULAR VOLUME 92.9 FL (78-98); MEAN PLATELET VOLUME 8.5 FL (7.4-10.4); MONOCYTES # (AUTO) 0.3 X10'3 (0-0.9); MONOCYTES % (AUTO) 13.3 % (2-12); NEUTROPHILS # (AUTO) 1.5 X10'3 (1.8-7.7); NEUTROPHILS % (AUTO) 67.7 % (42-75); PLATELET COUNT 68 X10'3 (140-440); RED BLOOD COUNT 2.53 X10'6 (4.20-5.60); RED CELL DISTRIBUTION WIDTH 15.8 % (11.5-14.5); WHITE BLOOD COUNT 2.3 X10'3 (4.5-11.0)
--- NOTE | 2019-10-24 06:28 | NUR ---
Problems reprioritized. Patient report given, questions answered & plan of care reviewed with Nicole FERNANDEZ.
[2019-10-24 06:42] LABS: ALANINE AMINOTRANSFERASE 40 U/L (12-78); ALBUMIN 2.2 G/DL (3.4-5.0); ALBUMIN/GLOBULIN RATIO 0.5 (1.1-1.5); ALKALINE PHOSPHATASE 13 IU/L (46-116); ANION GAP 5 (8-16); ASPARTATE AMINO TRANSFERASE 27 U/L (10-37); BILIRUBIN,TOTAL 0.3 MG/DL (0.1-1.0); BLOOD UREA NITROGEN 32 MG/DL (7-18); BUN/CREATININE RATIO 25.4 (6.6-38.0); CALCIUM 7.8 MG/DL (8.5-10.1); CHLORIDE 110 MMOL/L (99-107); CREATININE 1.26 MG/DL (0.40-0.90); POTASSIUM 4.3 MMOL/L (3.5-5.1); SODIUM 141 MMOL/L (135-145); TOTAL CARBON DIOXIDE 25.9 MMOL/L (24-32); TOTAL PROTEIN 6.9 G/DL (6.4-8.2); eGFR 46 ML/MIN
[2019-10-24 06:43] LABS: GLUCOSE 91 MG/DL (70-104)
--- NOTE | 2019-10-24 06:43 | NUR ---
Patient in room ORTHO 4007. I have received report from REBECCA Lopez and had the opportunity to ask questions and assume patient care.
[2019-10-24 07:13] LABS: PLATELET ESTIMATE DECREASED; TOTAL CELLS COUNTED 100
[2019-10-24] MEDS: lactulose 20gm/30ml cup PO SCH (07:30)
[2019-10-24] MEDS: gabapentin 300mg capsule PO SCH ×2 (08:09→20:49)
[2019-10-24] MEDS: duloxetine 30mg CAPSULE.DR PO SCH (08:11)
[2019-10-24] MEDS: thiamine 100mg tablet PO SCH (08:12)
[2019-10-24] MEDS: pantoprazole 40mg Tablet.DR PO SCH (08:13)
[2019-10-24] MEDS: furosemide 40mg tablet PO SCH (08:13)
[2019-10-24] MEDS: hydroxychloroquine 200mg tablet PO SCH (08:14)
[2019-10-24] MEDS: prednisone 10mg tablet PO SCH (08:16)
[2019-10-24] MEDS: LIDOcaine 5% patch TP SCH (08:23)
[2019-10-24 10:00] VITALS: BP 119/69
--- NOTE | 2019-10-24 11:45 | NUR ---
Initial: Pt admit w/ Lupus, chronic pancytopenia, immune-mediated polyneuropathy, and cocaine abuse; hx non-compliant w/ Lupus meds per MD. PO 50-75% avg meals fluctuating overall likely meeting needs on regular diet. Pt on neutropenic precautions w/ WBC 2.3L and neutrophil 1.5 low; DANY d/w RN regarding neutropenic diet since on precautions if MD agreeable. LBM 10/18; pt refused lactulose this AM receiving miralax HS. Will continue to monitor. Rec: 1. neutropenic diet if MD agreeable 2. routine bowel care 3. monitor for ONS needs 4. weekly wts Addendum: 10/24/19 at [address] Amended: Links added.
[2019-10-24] MEDS ORDERED: bisacodyl 10mg suppository rectal RC ONE (15:00)
--- NOTE | 2019-10-24 18:23 | NUR ---
Patient in room ORTHO 4007. I have received report from REBECCA JONES and had the opportunity to ask questions and assume patient care. Addendum: 10/24/19 at 1824 by Nicole Townsend RN Problems reprioritized. Patient report given, questions answered & plan of care reviewed with REBECCA JONES.
[2019-10-24 18:30] VITALS: BP 132/72
[2019-10-24] MEDS ORDERED: oxyCODONE/APAP 10/325mg tablet PO PRN (20:35)
[2019-10-24] MEDS: temazepam 15mg capsule PO PRN (20:48)
[2019-10-24] MEDS: polyethylene glycol 3350 17gm powd pack PO SCH (21:00)
[2019-10-24 22:00] VITALS: BP 134/55
[2019-10-25] MEDS: oxyCODONE/APAP 10/325mg tablet PO PRN ×4 (02:54→20:56)
[2019-10-25 06:00] VITALS: BP 125/76
--- NOTE | 2019-10-25 06:00 | NUR ---
Patient in room ORTHO 4007. I have received report from REBECCA Saucedo and had the opportunity to ask questions and assume patient care.
--- NOTE | 2019-10-25 06:30 | NUR ---
Patient in room ORTHO 4007. I have received report from Brandi and had the opportunity to ask questions and assume patient care.
--- NOTE | 2019-10-25 06:30 | NUR ---
Patient in room ORTHO 4007. I have received report from REBECCA Saucedo and had the opportunity to ask questions and assume patient care.
[2019-10-25] MEDS: lactulose 20gm/30ml cup PO SCH (07:30)
[2019-10-25] MEDS: pantoprazole 40mg Tablet.DR PO SCH (07:40)
[2019-10-25] MEDS: duloxetine 30mg CAPSULE.DR PO SCH (07:40)
[2019-10-25] MEDS: furosemide 40mg tablet PO SCH (07:40)
[2019-10-25] MEDS: thiamine 100mg tablet PO SCH (07:41)
[2019-10-25] MEDS: prednisone 10mg tablet PO SCH (07:41)
[2019-10-25] MEDS: hydroxychloroquine 200mg tablet PO SCH (07:41)
[2019-10-25] MEDS: gabapentin 300mg capsule PO SCH ×2 (07:41→20:56)
[2019-10-25] MEDS: LIDOcaine 5% patch TP SCH (07:46)
--- NOTE | 2019-10-25 17:13 | NUR ---
Student documentation: I have reviewed and agree with all interventions, assessments performed and documented by SN. Angela Manning RN.
[2019-10-25 18:00] VITALS: BP 116/66
--- NOTE | 2019-10-25 18:15 | NUR ---
RECEIVED REPORT FROM CRISTY FERNANDEZ AND ASSUMED PATIENT CARE
--- NOTE | 2019-10-25 18:30 | NUR ---
Problems reprioritized. Patient report given, questions answered & plan of care reviewed with REBECCA Saucedo.
--- NOTE | 2019-10-25 18:35 | NUR ---
Problems reprioritized. Patient report given, questions answered & plan of care reviewed with REBECCA Saucedo.
[2019-10-25] MEDS: temazepam 15mg capsule PO PRN (20:56)
[2019-10-25] MEDS: polyethylene glycol 3350 17gm powd pack PO SCH (21:00)
[2019-10-25 22:00] VITALS: BP 117/71
[2019-10-26] MEDS: oxyCODONE/APAP 10/325mg tablet PO PRN ×2 (04:45→13:38)
[2019-10-26 06:00] VITALS: BP 109/60
--- NOTE | 2019-10-26 06:49 | NUR ---
Patient in room ORTHO 4007. I have received report from REBECCA Barboza and had the opportunity to ask questions and assume patient care.
--- NOTE | 2019-10-26 06:51 | NUR ---
Patient in room ORTHO 4007. I have received report from REBECCA Saucedo and had the opportunity to ask questions and assume patient care.
[2019-10-26] MEDS: lactulose 20gm/30ml cup PO SCH (07:30)
[2019-10-26] MEDS: gabapentin 300mg capsule PO SCH (08:39)
[2019-10-26] MEDS: hydroxychloroquine 200mg tablet PO SCH (08:42)
[2019-10-26] MEDS: sulfamethoxazole/trimethoprim DS (800/160mg) tablet PO SCH (08:42)
[2019-10-26] MEDS: duloxetine 30mg CAPSULE.DR PO SCH (08:42)
[2019-10-26] MEDS: pantoprazole 40mg Tablet.DR PO SCH (08:44)
[2019-10-26] MEDS: furosemide 40mg tablet PO SCH (08:44)
[2019-10-26] MEDS: prednisone 10mg tablet PO SCH (08:47)
[2019-10-26] MEDS: LIDOcaine 5% patch TP SCH (08:51)
[2019-10-26] MEDS: thiamine 100mg tablet PO SCH (08:51)
[2019-10-26 10:00] VITALS: BP 128/63
[2019-10-26] MEDS: morphine 2 MG/ML inj. syringe IV PRN (10:14)
[2019-10-26] MEDS ORDERED: bisacodyl 10mg suppository rectal RC PRN (11:55)
[2019-10-26] MEDS ORDERED: FURO-149 PO (12:26)
[2019-10-26] MEDS ORDERED: OXYC-511 PO (12:26)
[2019-10-26] MEDS ORDERED: GABA300C PO (12:26)
[2019-10-26] MEDS ORDERED: SULF1TAB49 PO (12:26)
[2019-10-26] MEDS ORDERED: DULO30CA52 PO (12:26)
[2019-10-26] MEDS ORDERED: SPIR50TA5 PO (12:26)
[2019-10-26] MEDS ORDERED: PRED50TA PO (12:26)
[2019-10-26] MEDS ORDERED: LACT10SO PO (12:26)
[2019-10-26] MEDS ORDERED: HYDR200T80 PO (12:26)
--- NOTE | 2019-10-26 15:35 | NUR ---
PT WAS ASSISTED WITH GETTING DRESSED, BELONGINGS GATHERED BY STUDENT RN. RIGHT UPPER ARM PICC LEFT IN PLACE. PT WHEELED DOWN TO PRIVATE VEHICLE, DAUGHTER. DC INSTRUCTIONS GONE OVER WITH PT AND DAUGHTER, QUESTIONS WERE ANSWERED, NO CONCERNS. PT IN STABLE CONDITION.
== END 2019-10-26 14:35 | disposition home health service (06) | DRG 346 ==
LOC: UNDOADMIN 21:45 → ORTHO 4S 21:45
PROVIDERS: ADMIT Internal Medicine; ATTEND Internal Medicine
DX: I77.6 Arteritis, unspecified (principal); D61.818 Other pancytopenia; M32.9 Systemic lupus erythematosus, unspecified; N17.9 Acute kidney failure, unspecified; N18.3 Chronic kidney disease, stage 3 (moderate); I42.2 Other hypertrophic cardiomyopathy; E87.5 Hyperkalemia; D89.1 Cryoglobulinemia; K72.90 Hepatic failure, unspecified without coma; K74.60 Unspecified cirrhosis of liver; Z82.3 Family history of stroke; Z79.899 Other long term (current) drug therapy
CPT/HCPCS: 36415; 36573; 76937; 80053; 85025; 87081; 92508; 92616; 93005; 97110; 97112; 97116; 97163; 97530; G0378; J2270; J2405; J7512

== ENCOUNTER → 2020-12-30 | Emergency (ER) | payer MEDICAID ==
[~2020-12-30] VITALS: Ht 157.5 cm; Wt 54.5 kg
[~2020-12-30] MED LIST changes: -ACET325T55 PO; +CALC500T11 PO; +CLOT15CR10 TOP; +DULO30CA52 PO; -FERR-106 PO; +GABA300C PO; +HYDR-3965 PO; -HYDR-3972 PO; +HYDR200T80 PO; +HYDROmorphone 1 mg/ml syringe IM ONE; -LACT10SO PO; +LACT10SO3 PO; +LANS30CA56 PO; +LIDO700A32 TOP; +MELA3TAB39 PO; +OXYC1TAB17 PO; -PANT-47 PO; +POLY17PO10 PO; +PRED50TA PO; +SENN-263 PO; +SULF1TAB49 PO; +THIAMINE MONONITRATE PO; +VITD400T PO; +morphine 4 MG/ML inj SYRINge IV ONE; +normal saline 1000ML IV soln IVB ONE; +ondansetron/PF 4mg/2ml inj IV ONE
[2020-12-30] MEDS: morphine 4 MG/ML inj SYRINge IV PRN ×4 (12:12→15:51)
[2020-12-30 12:59] LABS: LYMPHOCYTES # (AUTO) 0.5 X10'3 (1.1-4.8); MEAN CORPUSCULAR HGB CONC 32.1 g/dL (33.0-36.5); NEUTROPHILS # (AUTO) 1.9 X10'3 (1.8-7.7); WHITE BLOOD COUNT 2.7 X10'3 (4.5-11.0)
[2020-12-30 13:03] LABS: BASOPHILS % (AUTO) 0.3 % (0-1); EOSINOPHILS % (AUTO) 0.8 % (0-6); HEMATOCRIT 32.7 % (35.0-45.0); HEMOGLOBIN 10.5 g/dl (12.0-16.0); LYMPHOCYTES % (AUTO) 17.2 % (21-51); MEAN CORPUSCULAR HEMOGLOBIN 29.9 PG (27.0-31.0); MEAN CORPUSCULAR VOLUME 93.2 FL (78-98); MEAN PLATELET VOLUME 9.4 FL (7.4-10.4); MONOCYTES # (AUTO) 0.3 X10'3 (0-0.9); MONOCYTES % (AUTO) 9.8 % (2-12); NEUTROPHILS % (AUTO) 71.9 % (42-75); RED BLOOD COUNT 3.51 X10'6 (4.20-5.60); RED CELL DISTRIBUTION WIDTH 16.2 % (11.5-14.5)
[2020-12-30 13:12] LABS: ALANINE AMINOTRANSFERASE 12 U/L (12-78); ALBUMIN 1.4 G/DL (3.4-5.0); ALBUMIN/GLOBULIN RATIO 0.3 (1.1-1.5); ALKALINE PHOSPHATASE 25 IU/L (46-116); ANION GAP 8 (8-16); ASPARTATE AMINO TRANSFERASE 36 U/L (10-37); BILIRUBIN,TOTAL 0.2 MG/DL (0.1-1.0); BLOOD UREA NITROGEN 25 MG/DL (7-18); BUN/CREATININE RATIO 15.2 (6.6-38.0); CALCIUM 7.4 MG/DL (8.5-10.1); CHLORIDE 110 MMOL/L (99-107); CREATININE 1.65 MG/DL (0.40-0.90); LIPASE 86 U/L (73-393); POTASSIUM 4.4 MMOL/L (3.5-5.1); SODIUM 142 MMOL/L (135-145); TOTAL CARBON DIOXIDE 23.8 MMOL/L (24-32); TOTAL PROTEIN 6.8 G/DL (6.4-8.2); eGFR 33 ML/MIN
[2020-12-30 13:13] LABS: GLUCOSE 115 MG/DL (70-104)
[2020-12-30 13:28] LABS: PLATELET COUNT 24 X10'3 (140-440)
[2020-12-30 13:37] LABS: TOTAL CELLS COUNTED 100
[2020-12-30 13:38] LABS: ANISOCYTOSIS 1+; ELLIPTOCYTES 1+; PLATELET ESTIMATE DECREASED; SCHISTOCYTES FEW; TEAR DROP CELLS 1+
[2020-12-30 15:52] VITALS: BP 164/92
[2020-12-30 17:02] LABS: CLARITY,URINE CLEAR (Clear); COLOR,URINE YELLOW (Yellow); GLUCOSE, URINE NEGATIVE (Neg); KETONES,URINE NEGATIVE (Neg); LEUKOCYTE ESTERASE ,URINE NEGATIVE (Neg); NITRITES, URINE NEGATIVE (Neg); OCCULT BLOOD,URINE MODERATE (Neg); PROTEIN,URINE >=300 mg/dl (Neg); UROBILINOGEN,URINE 0.2 E.U/dL (0.2-1.0)
[2020-12-30 17:03] LABS: UA COLLECTION TYPE STRAIGHT CATH
[2020-12-30 17:13] LABS: HYALINE CASTS 0-3 /LPF (NEGATIVE); SQUAMOUS EPITHELIAL CELL,UR FEW /LPF (FEW)
[2020-12-30 17:15] LABS: BACTERIA,URINE 1+ /HPF (Neg); WBC,URINE 0-4 /HPF (0-4)
== END | disposition home or self-care (01) ==
LOC: ER 11:10
DX: R10.84 Generalized abdominal pain (principal); R10.31 Right lower quadrant pain; R10.32 Left lower quadrant pain; L93.0 Discoid lupus erythematosus; D61.818 Other pancytopenia; N18.6 End stage renal disease; I50.9 Heart failure, unspecified; G89.29 Other chronic pain; M19.90 Unspecified osteoarthritis, unspecified site; K72.90 Hepatic failure, unspecified without coma; Z86.2 Personal history of diseases of the blood and blood-forming organs and certain disorders involving the immune mechanism; Z56.0 Unemployment, unspecified; Z79.899 Other long term (current) drug therapy
CPT/HCPCS: 36415; 74176; 76700; 80053; 81001; 83690; 85007; 85025; 96361; 96372; 96374; 96375; 96376; 99285; J1170; J2270; J2405; J7030

== ENCOUNTER 2021-05-21 12:06 | Day surgery (SDC) | payer MEDICARE, MEDICAID ==
[~2021-05-21] VITALS: Ht 157.5 cm; Wt 60.2 kg
[~2021-05-21 12:06] MED LIST changes: -HYDR-3965 PO; -HYDROmorphone 1 mg/ml syringe IM ONE; -morphine 4 MG/ML inj SYRINge IV ONE; -normal saline 1000ML IV soln IVB ONE; -ondansetron/PF 4mg/2ml inj IV ONE
[2021-05-21] MEDS ORDERED: LIDOcaine 1% 30ml preserv. free vial SQ STA (12:23)
[2021-05-21] MEDS ORDERED: albumin 25% 100mL bottle x 1 IV PRN (12:35)
--- NOTE | 2021-05-21 13:00 | NUR ---
Dr Holguin at bedside with ultrasound. Canceled paracentesis d/t not enough fluid.
== END 2021-05-21 13:30 | disposition home or self-care (01) ==
LOC: SSTAY O 12:06
PROVIDERS: ATTEND Radiology Diagnostic Radiology
DX: R18.8 Other ascites (principal); G89.29 Other chronic pain; Z79.899 Other long term (current) drug therapy; Z82.3 Family history of stroke
CPT/HCPCS: 49083; 76705

== ENCOUNTER 2021-06-19 11:45 | Inpatient (IN) | payer MEDICARE, MEDICAID ==
[~2021-06-19] VITALS: Ht 157.5 cm; Wt 54.5 kg
[~2021-06-19 11:45] MED LIST changes: -CLOT15CR10 TOP; -DULO30CA52 PO; -HYDR200T80 PO; -LANS30CA56 PO; -LIDO700A32 TOP; -MELA3TAB39 PO; -SENN-263 PO; -SULF1TAB49 PO; -THIAMINE MONONITRATE PO; +dextrose 50%-water 50ml dispensing syringe IV ONE; +epiNEPHrine 0.1mg/ml 10ml syringe ONE; +sodium bicarbonate (8.4%) 1 mEq/ml syringe ONE
--- NOTE | 2021-06-19 12:20 | NUR ---
FIRST CONTACT WITH PT. PRESENTS TO ED WITH DIFFUSE ABD PAIN /, REPORTS SHE NEEDS TO HAVE HER STOMACH DRAINED. ABD IS ROUND, FIRM. LAST PARACENTESIS TWO WEEKS AGO. PT TACHYCARDIC, TACHYPNEIC, DIAPHRORETIC, BREATHING ON 2L NC WITH BLOOD PRESSURE 80-90S SYSTOLIC. 20G IV STARTED LEFT WRIST. PT REQUESTING ICE CHIPS AND PAIN MEDS, AWATING MD GARVEY.
[2021-06-19] MEDS ORDERED: ondansetron/PF 4mg/2ml inj IV ONE (13:10)
[2021-06-19] MEDS ORDERED: LIDOcaine 1% W/epiNEPHrine 1:100,000 20ml vial SQ ONE (13:10)
[2021-06-19 14:14] LABS: ALANINE AMINOTRANSFERASE 16 U/L (12-78); ALKALINE PHOSPHATASE 63 IU/L (46-116); ANION GAP 20 (8-16); BLOOD UREA NITROGEN 45 MG/DL (7-18); BUN/CREATININE RATIO 13.7 (6.6-38.0); CHLORIDE 114 MMOL/L (99-107); CREATININE 3.28 MG/DL (0.40-0.90); LIPASE 465 U/L (73-393); POTASSIUM 4.1 MMOL/L (3.5-5.1); SODIUM 144 MMOL/L (135-145); eGFR 15 ML/MIN
[2021-06-19] MEDS ORDERED: albumin (human) 25% 100 ML IV solution IV ONE (14:15)
--- NOTE | 2021-06-19 14:15 | NUR ---
WALKED PAST PATIENT ROOM, RR 45, HR 113, SPO2 85% ON 5L NC. PATIENT LETHARGIC, NOT FOLLOWING SIMPLE COMMANDS. DR CAMPOVERDE MADE AWARE. PLACED ON NON REBREATHER 15L, SPO2 90%. REBECCA DELGADO AT BEDSIDE.
[2021-06-19] MEDS ORDERED: normal saline 1000ML IV soln IV ONE (14:25)
[2021-06-19] MEDS ORDERED: piperacillin/tazo 3.375gm/50ml 50 ML IV ONE (14:25)
[2021-06-19 14:28] LABS: ALBUMIN/GLOBULIN RATIO 0.2 (1.1-1.5); ASPARTATE AMINO TRANSFERASE 35 U/L (10-37); BILIRUBIN,TOTAL 0.6 MG/DL (0.1-1.0)
[2021-06-19 14:31] LABS: CALCIUM 7.3 MG/DL (8.5-10.1); HEMATOCRIT 37.6 % (35.0-45.0); HEMOGLOBIN 12.2 g/dl (12.0-16.0); MEAN CORPUSCULAR HEMOGLOBIN 29.5 PG (27.0-31.0); MEAN CORPUSCULAR HGB CONC 32.5 g/dL (33.0-36.5); MEAN CORPUSCULAR VOLUME 90.7 FL (78-98); MEAN PLATELET VOLUME 10.2 FL (7.4-10.4); PLATELET COUNT 63 X10'3 (140-440); RED BLOOD COUNT 4.15 X10'6 (4.20-5.60); RED CELL DISTRIBUTION WIDTH 19.8 % (11.5-14.5)
--- NOTE | 2021-06-19 14:32 | NUR ---
PATIENT OPENING EYES SPONTANEOUSLY AND REQUESTING WATER, EDUCATED ON WOODALL CATHETER INSERTION AND UPDATED. SEE VITAL SIGNS FLOW SHEET.
[2021-06-19 14:33] LABS: GLUCOSE 48 MG/DL (70-104); TOTAL CARBON DIOXIDE 10.3 MMOL/L (24-32)
[2021-06-19 14:35] LABS: EOSINOPHILS % (AUTO) 0.1 % (0-6)
[2021-06-19 14:36] LABS: BASOPHILS % (AUTO) 0.6 % (0-1); LYMPHOCYTES # (AUTO) 0.3 X10'3 (1.1-4.8); LYMPHOCYTES % (AUTO) 51.3 % (21-51); MONOCYTES # (AUTO) 0.1 X10'3 (0-0.9); MONOCYTES % (AUTO) 10.4 % (2-12); NEUTROPHILS # (AUTO) 0.2 X10'3 (1.8-7.7); NEUTROPHILS % (AUTO) 37.6 % (42-75)
[2021-06-19 14:59] LABS: ABG BASE EXCESS -24.4 mmol/L (-2.0-2.0); ABG HCO3 5.8 mmol/L (22.0-26.0); ABG OXYGEN SATURATION 93.9 % (94-97); ABG PCO2 (T) 25.7 mmHg (32.0-45.0); ABG PO2 (T) 106.9 mmHg (75.0-100.0); ALLEN'S TEST POSITIVE; FCOHb 0.1 % (0.0-3.9); FLOW 15 L/min; FMetHb 13.5 % (0.0-1.5); FO2Hb 81.1 % (94-97); PATIENT TEMPERATURE 37.2
[2021-06-19] MEDS ORDERED: dextrose 50%-water 50ml dispensing syringe IV ONE (15:00)
[2021-06-19 15:01] LABS: APTT 58 SECONDS (22-32); D-DIMER 9.99 MG/L FEU (0-0.50)
[2021-06-19 15:03] LABS: WHITE BLOOD COUNT 0.7 X10'3 (4.5-11.0)
--- NOTE | 2021-06-19 15:03 | NUR ---
WBC 0.[address]KER [address] CAMPOVERDE
[2021-06-19 15:07] LABS: URINE HCG NEGATIVE (NEG)
--- NOTE | 2021-06-19 15:07 | NUR ---
lab called 13.[address] CAMPOVERDE
[2021-06-19 15:25] LABS: CLARITY,URINE CLOUDY (Clear); COLOR,URINE YELLOW (Yellow); GLUCOSE, URINE NEGATIVE (Neg); KETONES,URINE NEGATIVE (Neg); LEUKOCYTE ESTERASE ,URINE TRACE (Neg); NITRITES, URINE POSITIVE (Neg); OCCULT BLOOD,URINE MODERATE (Neg); PH,URINE 6.5 (4.8-8.0); PROTEIN,URINE >=300 mg/dl (Neg); UROBILINOGEN,URINE 0.2 E.U/dL (0.2-1.0)
[2021-06-19] MEDS ORDERED: fentaNYL/PF 50MCG/1 ML 2ML syringe IV ONE (15:25)
[2021-06-19 15:33] LABS: BACTERIA,URINE 4+ /HPF (Neg); SQUAMOUS EPITHELIAL CELL,UR FEW /LPF (FEW); UA COLLECTION TYPE FOLEY CATH; WBC,URINE 50-100 /HPF (0-4)
[2021-06-19 15:34] LABS: HYALINE CASTS 0-3 /LPF (NEGATIVE); MUCUS STRANDS FEW /LPF (Neg); TRANSITIONAL EPI CELLS,URINE FEW /HPF
--- NOTE | 2021-06-19 16:10 | NUR ---
DR. CAMPOVERDE MADE AWARE OF PT VITAL SIGNS, NO NEW ORDERS AT THIS TIME.
--- NOTE | 2021-06-19 16:15 | NUR ---
pt blood sugar 11, two amps of d50 pushed. dr. bundy informed.
--- NOTE | 2021-06-19 16:30 | NUR ---
pt awake and alert, requesting ice chips and water. remains on 15l NRB, rr 30, pale.
--- NOTE | 2021-06-19 16:45 | NUR ---
verbal order for third liter of NS d/t low bp.
--- NOTE | 2021-06-19 17:40 | NUR ---
UPDATED DR. CAMPOVERDE ON PT STATUS. NEW ORDER FOR 1 AMP IV BICARB IN ADDITION TO BICARB DRIP. PT BP REMAINS 70-80S SYSTOLIC, BREATHING 30-40BPM ON 15l NRB.
[2021-06-19] MEDS: sodium bicarbonate (8.4%) inj. 150 MEQ in dextrose 5%-water 1,000 ML IV SCH ×2 (17:45→19:16)
--- NOTE | 2021-06-19 17:52 | NUR ---
REPEAT BS 47, 4TH AMP OF D50 GIVEN IV. DR. CAMPOVERDE AT BEDSIDE.
[2021-06-19] MEDS ORDERED: sodium bicarbonate (8.4%) 1 mEq/ml syringe IV ONE ×2 (18:00→23:10)
[2021-06-19 18:03] VITALS: BP 80/41
--- NOTE | 2021-06-19 18:03 | NUR ---
PT INTUBATED BY PROJECT FACILITATOR STUDENT WITH DR. CAMPOVERDE AT [facility]. 7.0 ETT, 21 AT TEETH. SEE EMAR Addendum: 06/19/21 at 1811 by LANETTE CORRECTION - 7.5 ETT PLACED
[2021-06-19] MEDS ORDERED: etomidate 2mg/ml inj. IV ONE (18:05)
[2021-06-19] MEDS ORDERED: rocuronium 10mg/ml inj IV ONE (18:05)
[2021-06-19] MEDS ORDERED: midazolam 100mg in NS 100ml 100 ML IV PRN (18:05)
[2021-06-19] MEDS ORDERED: NORepinephrine inj. 8 MG in dextrose 5%-water 242 ML IV SCH (18:30)
[2021-06-19] MEDS ORDERED: NORepinephrine 8mg/ 250ml NS 250 ML IV SCH (18:31)
[2021-06-19 19:06] LABS: ALBUMIN 1.2 G/DL (3.4-5.0); ANION GAP 21 (8-16); BLOOD UREA NITROGEN 42 MG/DL (7-18); BUN/CREATININE RATIO 12.5 (6.6-38.0); CHLORIDE 116 MMOL/L (99-107); CREATININE 3.37 MG/DL (0.40-0.90); POTASSIUM 4.4 MMOL/L (3.5-5.1); SODIUM 146 MMOL/L (135-145); eGFR 15 ML/MIN
[2021-06-19 19:07] LABS: NUCLEATED RED BLOOD CELLS 9 /100WBC (0-0); TOTAL CELLS COUNTED 100
[2021-06-19 19:10] LABS: PLATELET ESTIMATE DECREASED
[2021-06-19 19:13] LABS: ANISOCYTOSIS 1+; GIANT PLATELET FEW
[2021-06-19 19:14] LABS: POLYCHROMASIA 1+
[2021-06-19 19:15] LABS: CALCIUM 5.8 MG/DL (8.5-10.1); TOTAL CARBON DIOXIDE 8.8 MMOL/L (24-32)
[2021-06-19 19:16] LABS: ELLIPTOCYTES FEW; TEAR DROP CELLS FEW
[2021-06-19 19:17] LABS: SMUDGE CELLS 1+
[2021-06-19 19:18] LABS: POIKILOCYTOSIS FEW; SCHISTOCYTES FEW; TOXIC GRANULATION 1+
[2021-06-19 19:19] LABS: TOXIC VACUOLATION FEW
[2021-06-19 19:28] LABS: GLUCOSE 95 MG/DL (70-104)
[2021-06-19] MEDS ORDERED: NORepinephrine inj. 32 MG in normal saline 250ml IV soln 218 ML IV SCH (20:05)
[2021-06-19] MEDS ORDERED: calcium gluconate inj. 1 GM in normal saline 100ml IV soln 100 ML IV SCH (20:55)
[2021-06-19] MEDS ORDERED: vasopressin inj. 40 UNIT in dextrose 5%-water 50ml 38 ML IV SCH ×2 (20:55→22:35)
[2021-06-19] MEDS: NORepinephrine 8mg/ 250ml NS 250 ML IV SCH (21:28)
[2021-06-19] MEDS: CALCIUM GLUC 1gm/50ml NACL,iso 50 ML IV SCH ×2 (21:29→21:39)
[2021-06-19] MEDS: vasopressin inj. 40 UNIT in normal saline 50ml IV soln 38 ML IV SCH (21:29)
[2021-06-19] MEDS ORDERED: LIDOcaine 2% 10ml TOPICAL JELLY (Urojet) TP ONE (22:25)
[2021-06-19] MEDS ORDERED: acetaminophen 325mg tablet PO PRN ×2 (22:25)
[2021-06-19] MEDS ORDERED: morphine 4 MG/ML inj SYRINge IV PRN (22:25)
[2021-06-19] MEDS ORDERED: ondansetron/PF 4mg/2ml inj IV PRN (22:25)
[2021-06-19] MEDS ORDERED: magnesium hydroxide 30ml (MOM) UD suspension PO PRN (22:25)
[2021-06-19] MEDS ORDERED: potassium Cl 20 mEq SR tablet PO PRN ×2 (22:25)
[2021-06-19] MEDS ORDERED: morphine 2 MG/ML inj. syringe IV PRN (22:25)
[2021-06-19] MEDS ORDERED: DEXTROSE 10 % AND 0.45 % NACL 1,000 ML IV SCH (22:35)
[2021-06-19 22:42] VITALS: BP 61/46
[2021-06-19] MEDS ORDERED: vancomycin/NS 1 GM ADD-VANTAGE 250 ML IV ONE (22:45)
[2021-06-19 23:02] LABS: OXYGEN SATURATION (MIXED VEN) 38.9 % (60-80); PO2 MIXED VENOUS (TEMP COR) 31.9 mmHg (35-46)
[2021-06-19] MEDS ORDERED: epiNEPHrine inj 10 MG in normal saline 250ml IV soln 240 ML IV SCH ×2 (23:05→23:06)
[2021-06-19] MEDS ORDERED: sodium bicarbonate (8.4%) inj. 1 MEQ/ML ML ONE (23:13)
--- NOTE | 2021-06-19 23:15 | NUR ---
DR BALES WAS NOTIFIED OF PT'S ABG RESULTS, ORDER TAKEN FOR BICARB, VENTILATOR RATE TO BE INCREASED TO 34
[2021-06-19 23:20] LABS: ALANINE AMINOTRANSFERASE 34 U/L (12-78); ALBUMIN 0.9 G/DL (3.4-5.0); ALBUMIN/GLOBULIN RATIO 0.3 (1.1-1.5); ALKALINE PHOSPHATASE 55 IU/L (46-116); AMYLASE 148 U/L (25-115); ANION GAP 23 (8-16); ASPARTATE AMINO TRANSFERASE 277 U/L (10-37); BILIRUBIN,TOTAL 1.1 MG/DL (0.1-1.0); BLOOD UREA NITROGEN 43 MG/DL (7-18); BUN/CREATININE RATIO 11.9 (6.6-38.0); CALCIUM 7.4 MG/DL (8.5-10.1); CHLORIDE 116 MMOL/L (99-107); LIPASE 681 U/L (73-393); SODIUM 146 MMOL/L (135-145); TOTAL PROTEIN 3.5 G/DL (6.4-8.2); eGFR 13 ML/MIN
[2021-06-19 23:27] LABS: GLUCOSE 85 MG/DL (70-104)
[2021-06-19 23:29] LABS: BASOPHILS % (AUTO) 0.1 % (0-1); EOSINOPHILS # (AUTO) 0.1 X10'3 (0-0.9); MEAN PLATELET VOLUME 11.2 FL (7.4-10.4); MONOCYTES # (AUTO) 0.1 X10'3 (0-0.9)
[2021-06-19 23:31] LABS: EOSINOPHILS % (AUTO) 2.5 % (0-6); LYMPHOCYTES # (AUTO) 2.1 X10'3 (1.1-4.8); MONOCYTES % (AUTO) 2.9 % (2-12); NEUTROPHILS % (AUTO) 30.5 % (42-75); WHITE BLOOD COUNT 3.2 X10'3 (4.5-11.0)
[2021-06-19 23:46] LABS: POTASSIUM 6.3 MMOL/L (3.5-5.1); TOTAL CARBON DIOXIDE 6.8 MMOL/L (24-32)
[2021-06-20] MEDS ORDERED: piperacillin/tazo 3.375gm/50ml 50 ML IV SCH
[2021-06-20] MEDS ORDERED: heparin, porcine 5000 units/ml vial SQ SCH
[2021-06-20 00:05] LABS: D-DIMER > 35.20 MG/L FEU (0-0.50)
[2021-06-20 00:10] LABS: HEMATOCRIT 34.1 % (35.0-45.0); HEMOGLOBIN 10.6 g/dl (12.0-16.0); MEAN CORPUSCULAR HEMOGLOBIN 29.2 PG (27.0-31.0); MEAN CORPUSCULAR VOLUME 93.9 FL (78-98); PLATELET COUNT 16 X10'3 (140-440); RED BLOOD COUNT 3.64 X10'6 (4.20-5.60)
[2021-06-20 00:11] VITALS: BP 56/36
[2021-06-20 00:11] LABS: MEAN CORPUSCULAR HGB CONC 31.1 g/dL (33.0-36.5); RED CELL DISTRIBUTION WIDTH 18.6 % (11.5-14.5)
--- NOTE | 2021-06-20 00:12 | NUR ---
Dr. Vasquez in room assessing Pt.
[2021-06-20] MEDS ORDERED: FURO40TA4 PO (00:56)
[2021-06-20] MEDS ORDERED: HYDR-3972 PO (00:56)
[2021-06-20] MEDS ORDERED: SPIR25TA5 PO (00:56)
[2021-06-20] MEDS ORDERED: GABA300C PO (00:56)
[2021-06-20] MEDS ORDERED: TEMA15CA PO (00:56)
[2021-06-20] MEDS ORDERED: CYAN100097 PO (00:56)
[2021-06-20] MEDS ORDERED: calcium chloride 100 MG/1 ML inj IV ONE (01:15)
--- NOTE | 2021-06-20 01:21 | NUR ---
On first assessment of patient, abdomen distended and rigid. Extremities and lips blue. Levo was initied and shortly maxxed. Pt still hypotensive. Dr. Cronin was notifed fo vitals and labs. This RN asked for more pressors and calcium replacement. Dr. Cronin informed me that the patient was admitted and I needed to call the intensivest inhalation therapy aides teacher. Called Dr. Gallagher and informed him of situation and order for Vasopressin and Calcium gluconate was given. Vaso was shortly maxxed. Meanwhile Respiratory therapy was attempting to draw an ABG however, BP was so low that peripherial pulses were unpalpable. Carotid pulses were weak but palpable. Dr. Gallagehr was called again and was asked to talk to Dr. Cronin inregards to putting in an artline so that a BP could be measured. Dr. Cronin put an artline in the left groin. BP was in the 60s SBP on zeroed artline. ABG was drawn off artline by RT. Dr. Gallagher was called again with update on BP reading, Pt being maxxed on current pressors, and ABG results. I then asked to start an Epi drip and he agreed and also gave orders for 3 amps of bicarb. Epi was started. BP not improved. Dr. Gallagher called Dr. Vasquez and he called Dr. Valencia. Dr. Vasquez came and assessed Pt. Will continue to assess and intervene as appropriate.
[2021-06-20 01:26] LABS: NUCLEATED RED BLOOD CELLS 7 /100WBC (0-0); PLATELET ESTIMATE DECREASED; TOTAL CELLS COUNTED 100
[2021-06-20 01:27] LABS: ANISOCYTOSIS 3+; POIKILOCYTOSIS FEW
[2021-06-20 01:28] LABS: BURR CELLS FEW; SCHISTOCYTES FEW
[2021-06-20 01:29] LABS: ELLIPTOCYTES FEW; POLYCHROMASIA 1+; TEAR DROP CELLS FEW
[2021-06-20 01:30] LABS: LARGE PLATELETS FEW
[2021-06-20] MEDS ORDERED: CALCIUM GLUC 1gm/50ml NACL,iso 50 ML IV ONE (01:45)
[2021-06-20] MEDS ORDERED: hydrocortisone sod succ/PF 100mg/2ml inj. IV SCH (02:00)
[2021-06-20 02:05] LABS: EOSINOPHILS # (AUTO) 0.1 X10'3 (0-0.9)
[2021-06-20 02:09] LABS: BASOPHILS % (AUTO) 0 % (0-1); EOSINOPHILS % (AUTO) 1.7 % (0-6); LYMPHOCYTES # (AUTO) 4.3 X10'3 (1.1-4.8); LYMPHOCYTES % (AUTO) 68.8 % (21-51); MEAN PLATELET VOLUME 9.5 FL (7.4-10.4); MONOCYTES # (AUTO) 0.2 X10'3 (0-0.9); MONOCYTES % (AUTO) 3.9 % (2-12); NEUTROPHILS # (AUTO) 1.6 X10'3 (1.8-7.7); NEUTROPHILS % (AUTO) 25.6 % (42-75); WHITE BLOOD COUNT 6.3 X10'3 (4.5-11.0)
[2021-06-20] MEDS: sodium bicarbonate (8.4%) inj. 150 MEQ in dextrose 5%-water 1,000 ML IV SCH (02:12)
[2021-06-20] MEDS: NORepinephrine 8mg/ 250ml NS 250 ML IV SCH (02:12)
[2021-06-20 02:14] VITALS: BP 45/24
--- NOTE | 2021-06-20 02:23 | NUR ---
BP 40s over 20s all pressors maxxed, pulse checked via US by
[2021-06-20 02:28] LABS: ALBUMIN 0.6 G/DL (3.4-5.0); BLOOD UREA NITROGEN 44 MG/DL (7-18); BUN/CREATININE RATIO 13.3 (6.6-38.0); CALCIUM 7.6 MG/DL (8.5-10.1); CHLORIDE 119 MMOL/L (99-107); CREATININE 3.32 MG/DL (0.40-0.90); MAGNESIUM 2.2 MG/DL (1.5-2.4); SODIUM 152 MMOL/L (135-145); eGFR 15 ML/MIN
[2021-06-20 02:44] LABS: ANION GAP 28 (8-16)
[2021-06-20 02:46] LABS: GLUCOSE 44 MG/DL (70-104); POTASSIUM 6.4 MMOL/L (3.5-5.1); TOTAL CARBON DIOXIDE < 5 MMOL/L (24-32)
[2021-06-20 03:17] LABS: PLATELET COUNT 18 X10'3 (140-440)
[2021-06-20 03:18] LABS: HEMATOCRIT 43.3 % (35.0-45.0); HEMOGLOBIN 13.4 g/dl (12.0-16.0); MEAN CORPUSCULAR HEMOGLOBIN 29.9 PG (27.0-31.0); MEAN CORPUSCULAR VOLUME 96.7 FL (78-98); RED BLOOD COUNT 4.47 X10'6 (4.20-5.60)
[2021-06-20 03:19] LABS: MEAN CORPUSCULAR HGB CONC 30.9 g/dL (33.0-36.5); RED CELL DISTRIBUTION WIDTH 18.3 % (11.5-14.5)
[2021-06-20 04:10] VITALS: BP 54/32
[2021-06-20] MEDS: vasopressin inj. 40 UNIT in normal saline 50ml IV soln 38 ML IV SCH (04:10)
--- NOTE | 2021-06-20 04:33 | NUR ---
PT IN PEA. 1 of epi given. CPR INITIATED.
--- NOTE | 2021-06-20 04:35 | NUR ---
PULSE CHECK. PT IN VTACH PULSELESS.
--- NOTE | 2021-06-20 04:35 | NUR ---
1 OF EPI GIVEN.
--- NOTE | 2021-06-20 04:35 | NUR ---
PT IN PEA. CHEST COMPRESSIONS IN PROGRESS.
--- NOTE | 2021-06-20 04:37 | NUR ---
1 OF EPI GIVEN
--- NOTE | 2021-06-20 04:38 | NUR ---
TIME OF CALLED BY DR YOUNG.
--- NOTE | 2021-06-20 06:10 | NUR ---
Pt at 0438. Fmaily was notified by Dr. Valencia. Patricia (daughter) came to bedside. Federal Appellate Clerk was called at [phone]. Donor network was called at [phone] with reference number of [phone]. All belongings including purse, phone, backpack, wallet, and devulcanizer charger were given to daughter. No belongings were confiscated or sent to safe. Family left and was instructed to call back with mortuary, list of local mortuaries was given.
[2021-06-20] MEDS ORDERED: VANCOMYCIN 1GM/200ML IVPB 200 ML IV PRN (08:00)
[2021-06-20] MEDS ORDERED: K and/or MAG REPLACEMENT MC SCH (08:00)
[2021-06-20] MEDS ORDERED: pantoprazole 40MG/NS 100ML BAG 100 ML IV SCH (08:00)
--- NOTE | 2021-06-20 08:34 | NUR ---
Patient's daughter, Patricia, called stating patient's "buddah" necklace is missing as well as atkins from her wallet. Patient's room, bedsheets, person, and floor searched for necklace and not found. Called patient's daughter and left message on voice mail.
[2021-06-20 08:51] LABS: URINE AMPHETAMINE SCREEN NEGATIVE (Neg); URINE BARBITUATE SCREEN NEGATIVE (Neg); URINE BENZODIAZEPINES SCREEN NEGATIVE (Neg); URINE CANNABINOID SCREEN NEGATIVE (Neg); URINE COCAINE SCREEN NEGATIVE (Neg); URINE METHADONE SCREEN NEGATIVE (Neg); URINE OPIATE SCREEN POSITIVE (Neg); URINE PHENCYCLIDINE SCREEN NEGATIVE (Neg)
[2021-06-24 13:12] LABS: PATIENT TEMPERATURE 37.2
[2021-06-24 13:14] LABS: ABG PCO2 (T) 33.4 mmHg (32.0-45.0); ABG PO2 (T) 66.2 mmHg (75.0-100.0)
[2021-06-24 13:15] LABS: ABG OXYGEN SATURATION 77.7 % (94-97); FCOHb 0.3 % (0.0-3.9); FMetHb 0.9 % (0.0-1.5); FO2Hb 76.8 % (94-97)
== END 2021-06-20 04:38 | DRG 871 ==
LOC: ER 11:45 → UNDOADMIN 22:30 → ED HOLD 22:30
PROVIDERS: ADMIT Internal Medicine; ATTEND Internal Medicine
PROC: 5A1935Z Respiratory Ventilation, Less than 24 Consecutive Hours (ICD-10-PCS; principal; 2021-06-19)
PROC: 0BH17EZ Insertion of Endotracheal Airway into Trachea, Via Natural or Artificial Opening (ICD-10-PCS; 2021-06-19)
PROC: 02HV33Z Insertion of Infusion Device into Superior Vena Cava, Percutaneous Approach (ICD-10-PCS; 2021-06-19)
PROC: 04HY32Z Insertion of Monitoring Device into Lower Artery, Percutaneous Approach (ICD-10-PCS; 2021-06-19)
PROC: 5A12012 Performance of Cardiac Output, Single, Manual (ICD-10-PCS; 2021-06-19)
DX: A41.51 Sepsis due to Escherichia coli [E. coli] (principal); R65.21 Severe sepsis with septic shock; J96.01 Acute respiratory failure with hypoxia; D61.810 Antineoplastic chemotherapy induced pancytopenia; E87.4 Mixed disorder of acid-base balance; G93.1 Anoxic brain damage, not elsewhere classified; K55.9 Vascular disorder of intestine, unspecified; N17.9 Acute kidney failure, unspecified; R18.8 Other ascites; M32.9 Systemic lupus erythematosus, unspecified; N18.30 Chronic kidney disease, stage 3 unspecified; T45.1X5A Adverse effect of antineoplastic and immunosuppressive drugs, initial encounter; Z66 Do not resuscitate; K72.10 Chronic hepatic failure without coma; Z20.822 Contact with and (suspected) exposure to COVID-19; G89.29 Other chronic pain; R10.0 Acute abdomen; M19.90 Unspecified osteoarthritis, unspecified site; I50.9 Heart failure, unspecified; Z82.3 Family history of stroke; Z92.21 Personal history of antineoplastic chemotherapy; Z56.0 Unemployment, unspecified; Z79.899 Other long term (current) drug therapy; Y92.89 Other specified places as the place of occurrence of the external cause
CPT/HCPCS: 36415; 36556; 36600; 71045; 74176; 80048; 80053; 80305; 81001; 81025; 82140; 82150; 82803; 82810; 82948; 83605; 83690; 83735; 84145; 85007; 85018; 85025; 85379; 85384; 85610; 85730; 87040; 87077; 87088; 87186; 87635; 93005; 94002; 94760; 94799; 96365; 96367; 96375; 99291; 99292; C9803; G0378; J0171; J0610; J1720; J2543; J3010; J3370; J3490; J7030; J7050; J7070; P9047